=== PATIENT | female | born 1935 | race Caucasian/White ===

== ENCOUNTER 2018-11-19 17:37 | Inpatient (IN) | payer OTHER, MEDICARE ==
[~2018-11-19] VITALS: Ht 157.5 cm; Wt 83.0 kg
--- NOTE | 2018-11-19 17:44 | NUR ---
Arrived via BLS ambulance for eval due to possible infection of left foot stump. Patient to ER bed 3 to gown for evaluation. Side rails up. Report given to Madison GUZMAN.
[2018-11-19 17:46] VITALS: BP_SYST 100
--- NOTE | 2018-11-19 17:55 | NUR ---
ER Dr. Tolliver at bedside examining patient.
--- NOTE | 2018-11-19 17:57 | NUR ---
Patient presented to ER with partial left foot amputation infection. Patient A&Ox1, afebrile, cap refill <3, left 5th toe amputation dressing, pulses present, patient nonverbal, pt moaning, pain possible present. Patient resident of [facility], sent to ER by Dr. Mast for left foot partial amputation infection.
[2018-11-19] MEDS ORDERED: MORPHINE 4 MG/ML INJ. SYRINGE IVP ONE ×2 (18:00→21:30)
[2018-11-19] MEDS ORDERED: ONDANSETRON HCL 4 MG/2 ML VIAL IVP ONE (18:00)
--- NOTE | 2018-11-19 18:10 | NUR ---
# 22 gauge angiocath placed to right arm. Use of asceptic technique. Opsite placed over site. Blood return noted. Blood for lab drawn from site. Flushed with 10 cc of normal saline. No evidence of infiltration noted. Patient tolerated well.
--- NOTE | 2018-11-19 18:30 | NUR ---
radiology staff at bedside for x-ray
[2018-11-19 19:03] LABS: ANION GAP 12 (5-15); CHLORIDE 109 mmol/L (98-107); POTASSIUM 3.9 mmol/L (3.5-5.1); SODIUM SERUM 147 mmol/L (136-145)
[2018-11-19 19:04] LABS: CALCIUM 9.5 mg/dL (8.4-11.0); CREATININE 2.09 mg/dL (0.55-1.30); GLUCOSE 141 mg/dL (70-99); UREA NITROGEN, BLOOD 55 mg/dL (8-21)
--- NOTE | 2018-11-19 19:14 | NUR ---
REPORT TO KELSY GUZMAN
[2018-11-19 19:16] LABS: ALANINE AMINOTRANSFERASE 16 U/L (12-78); ALBUMIN 3.1 g/dL (3.4-4.8); ASPARTATE AMINOTRANSFERASE 18 U/L (10-37); TOTAL BILIRUBIN 0.7 mg/dL (0.0-1.0)
--- NOTE | 2018-11-19 19:21 | NUR ---
MRSA SPECIMEN COLLECTED USING ASEPTIC METHOD, SENT TO LAB
[2018-11-19 19:30] LABS: HEMATOCRIT 35.5 % (36-48); HEMOGLOBIN 11.6 g/dL (12.0-16.0); MEAN CORPUSCULAR HEMOGLOBIN 30 pg (27-31); MEAN CORPUSCULAR HGB CONC 33 % (32-36); MEAN CORPUSCULAR VOLUME 91 fL (79.0-98.0); PLATELET COUNT (AUTO) 275 K/uL (130-430); RED CELL DISTRIBUTION WIDTH 15.6 % (9.0-15.0); WHITE BLOOD COUNT (AUTO) 14.1 K/uL (4.8-10.8)
[2018-11-19] MEDS ORDERED: PIPERACILLIN/TAZO 3.375 GM in NS 50 ML IV ONE (19:30)
[2018-11-19 19:31] LABS: BASOPHILS # (AUTO) 0.1 K/uL (0.0-0.2); BASOPHILS % (AUTO) 0.6 % (0.0-2.0); EOSINOPHILS # (AUTO) 0.6 K/uL (0.0-0.4); EOSINOPHILS % (AUTO) 4.4 % (0.0-4.0); LYMPHOCYTES # (AUTO) 4.6 K/uL (1.0-5.5); LYMPHOCYTES % (AUTO) 32.9 % (20.5-51.5); MONOCYTES % (AUTO) 6.9 % (1.7-9.3); NEUTROPHILS # (AUTO) 7.8 K/uL (1.8-7.7); NEUTROPHILS % (AUTO) 55.2 % (40.0-70.0)
--- NOTE | 2018-11-19 19:34 | NUR ---
Pt started on Broad Spectrum antibiotic, no need for fluid resuscitation at this time. Pt has lactic acid below 4 and no hypotension. aware.
[2018-11-19 19:38] LABS: INR 1.8 (0.8-1.2); PROTHROMBIN TIME 17.8 SECS (9.5-12.5)
[2018-11-19] MEDS ORDERED: LIP20 PO (19:40)
[2018-11-19] MEDS ORDERED: PROT54LI PO (19:40)
[2018-11-19] MEDS ORDERED: ASPI-1155 PO (19:40)
[2018-11-19] MEDS ORDERED: FER300L PO (19:40)
[2018-11-19] MEDS ORDERED: MEMA5TAB PO (19:40)
[2018-11-19] MEDS ORDERED: CIPR-211 PO (19:40)
[2018-11-19] MEDS ORDERED: FURO-150 PO (19:40)
[2018-11-19] MEDS ORDERED: ZINC220T4 PO (19:40)
[2018-11-19] MEDS ORDERED: COU5 PO (19:40)
[2018-11-19] MEDS ORDERED: MULT-1100 PO (19:40)
[2018-11-19] MEDS ORDERED: TRAM50TA2 PO (19:40)
[2018-11-19] MEDS ORDERED: ASCO500T20 PO (19:40)
[2018-11-19] MEDS ORDERED: IPRA3AMP9 INH (19:40)
[2018-11-19] MEDS ORDERED: DOCU-144 PO (19:40)
[2018-11-19] MEDS ORDERED: LOSA100T3 PO (19:40)
[2018-11-19] MEDS ORDERED: CYAN250014 PO (19:40)
[2018-11-19] MEDS ORDERED: WARF4TAB68 PO (19:40)
--- NOTE | 2018-11-19 19:40 | NUR ---
Patient arrived with NO POLST. Patient is Full code at this time. Code Sheet placed in chart
--- NOTE | 2018-11-19 19:40 | NUR ---
Medication reconciliation completed with information provided by [facility] Medication Order. Any prior medication reconciliation on file was reviewed and corrected.
[2018-11-19] MEDS ORDERED: PIPERACILLIN/TAZOBACTAM 3.375 GM/VIAL (ZOSYN) IV ONE (19:48)
--- NOTE | 2018-11-19 21:15 | NUR ---
Pt appears to be moaning and in a lot of pain, pt medicated with morphine per MD order. Tolerated well. Will cont. to monitor on cardiac/O2 monitor.
[2018-11-19] MEDS ORDERED: traMADol HCL HCL 50 MG TABLET (ULTRAM) PO PRN (21:30)
[2018-11-19] MEDS ORDERED: MORPHINE 4 MG/ML INJ. SYRINGE ONE (21:34)
--- NOTE | 2018-11-19 21:37 | NUR ---
Patient will be admitted to care of Dr. Jamison. Admitted to MS unit. Will go to room 107A. Belongings list completed. Summary report printed. Report will be given at bedside.
--- NOTE | 2018-11-19 21:55 | NUR ---
Transferred to M/S Via [facility] with staff present. IV present no signs or symptoms of infiltration. Report called to MEGNA Morris.
[2018-11-19] MEDS ORDERED: VANCOMYCIN HCL 1 GM/NS PREMIX 250 ML IV ONE (22:00)
--- NOTE | 2018-11-19 22:05 | NUR ---
ADMISSION NOTE Received patient from ER via gurney. Patient admitted with diagnosis of Cellulitis. Patient is awake, alert, oriented X 1. Patient oriented to hospital room, call light, toileting, pain management and safety-teach back done. Patient informed that Hilda will be primary nurse and that their room number is 107A. Personal belongings checked and Belongings List documented. Call light within reach.
[2018-11-19 22:08] VITALS: BP_SYST 115
--- NOTE | 2018-11-19 23:01 | NUR ---
ATB PATIENT STARTED ON VANCOMYCIN ANTIBIOTIC ORDERED. IV LINE INTACT.
[2018-11-19] MEDS ORDERED: VANCOMYCIN HCL 1000 MG/VIAL IV ONE (23:03)
--- NOTE | 2018-11-19 23:45 | NUR ---
WOUND CARE WOUND CARE DONE ON PATIENT LEFT FOOT AND LEFT BUTTOCK WOUNDS. PHOTOS OF WOUND TAKEN AND DOCUMENTED.
--- NOTE | 2018-11-20 01:00 | NUR ---
ROUNDS PATIENT RESTING NO DISTRESS NOTED.
[2018-11-20] MEDS ORDERED: PIPERACILLIN/TAZOBACTAM 2.25 GM VIAL IV ONE (01:29)
[2018-11-20 01:37] VITALS: BP_SYST 132
--- NOTE | 2018-11-20 03:33 | NUR ---
ROUNDS NO CHANGE IN CONDITION. PATIENT AWAKE NO DISTRESS NOTED.
[2018-11-20] MEDS: PIPERACILLIN/TAZO 2.25G/DEX-IS 50 ML IV SCH ×2 (05:34→13:04)
--- NOTE | 2018-11-20 05:34 | NUR ---
ATB PATIENT DUE ANTIBIOTIC INFUSED. IV LINE INTACT AND PATENT.
--- NOTE | 2018-11-20 06:24 | NUR ---
CLOSING NOTES PATIENT RESTING IN BED. BREATHING UNLABORED ON ROOM AIR. PATIENT NEEDS ATTENDED. BED IN LOWEST LOCKED POSITION. CALL LIGHT WITH IN REACH.
[2018-11-20 07:20] LABS: BASOPHILS # (AUTO) 0.1 K/uL (0.0-0.2); BASOPHILS % (AUTO) 0.7 % (0.0-2.0); EOSINOPHILS # (AUTO) 0.6 K/uL (0.0-0.4); EOSINOPHILS % (AUTO) 4.8 % (0.0-4.0); HEMATOCRIT 32.3 % (36-48); HEMOGLOBIN 10.6 g/dL (12.0-16.0); LYMPHOCYTES # (AUTO) 3.8 K/uL (1.0-5.5); MEAN CORPUSCULAR HEMOGLOBIN 30 pg (27-31); MEAN CORPUSCULAR HGB CONC 33 % (32-36); MEAN CORPUSCULAR VOLUME 92 fL (79.0-98.0); MONOCYTES # (AUTO) 1.2 K/uL (0.0-1.0); MONOCYTES % (AUTO) 9.9 % (1.7-9.3); NEUTROPHILS # (AUTO) 6.6 K/uL (1.8-7.7); NEUTROPHILS % (AUTO) 53.6 % (40.0-70.0); PLATELET COUNT (AUTO) 233 K/uL (130-430); RED BLOOD CELL COUNT(AUTO) 3.53 MIL/uL (4.2-6.2); RED CELL DISTRIBUTION WIDTH 15.7 % (9.0-15.0); WHITE BLOOD COUNT (AUTO) 12.4 K/uL (4.8-10.8)
--- NOTE | 2018-11-20 07:39 | NUR ---
INITIAL NOTE BEDSIDE SBAR REPORT RECEIVED BY HOUSE CLEANER RN. PT RESTING IN BED. BREATHING EVEN AND UNLABORED. NO ACUTE DISTRESS NOTED. CALL LIGHT WITHIN REACH, BED IN LOW AND LOCKED POSITION WITH BED ALARM ON.
[2018-11-20 07:42] LABS: ALANINE AMINOTRANSFERASE 18 U/L (12-78); ALBUMIN 2.6 g/dL (3.4-4.8); ANION GAP 9 (5-15); ASPARTATE AMINOTRANSFERASE 21 U/L (10-37); CALCIUM 8.6 mg/dL (8.4-11.0); CHLORIDE 112 mmol/L (98-107); GLUCOSE 134 mg/dL (70-99); POTASSIUM 4.6 mmol/L (3.5-5.1); SODIUM SERUM 147 mmol/L (136-145); TOTAL BILIRUBIN 0.9 mg/dL (0.0-1.0); UREA NITROGEN, BLOOD 61 mg/dL (8-21)
[2018-11-20 08:00] VITALS: BP_SYST 116
--- NOTE | 2018-11-20 08:58 | NUR ---
Nutrition Update Jonn Scale 11 noted. Pt admitted for cellulitis. Diet: [facility] BMI: 29.3 kg/m2 RD to follow per nutrition care standards.
[2018-11-20] MEDS: ASPIRIN 81 MG TAB.CHEW PO SCH (09:00)
[2018-11-20] MEDS: MEMANTINE HCL 5 MG TABLET PO SCH (09:00)
[2018-11-20] MEDS: FUROSEMIDE 20 MG TABLET PO SCH (09:00)
[2018-11-20] MEDS: LOSARTAN POTASSIUM 50 MG TABLET (COZAAR) PO SCH (09:00)
--- NOTE | 2018-11-20 09:10 | NUR ---
DR. LOUIS SPOKE WITH MD AT NURSING [facility]. INFORMED MD THAT PATIENT REMAINS NON VERBAL AND REFUSING TO EAT OR TAKE MORNING MEDICATIONS. MD ALSO INFORMED OF NEEDS FOR DVT AND ACCU CHECKS. NO NEW ORDERS AT THIS TIME. Addendum: 11/20/18 at 1405 by Livier Craig RN MD INFORMED OF NO ORAL INTAKE FROM PATIENT, FOOD NOR WATER.
--- NOTE | 2018-11-20 09:30 | NUR ---
RN ROUNDS REPOSITIONED PT WITH HOB ELEVATED. REATTEMPTED TO ENCOURAGE PATIENT TO EAT, PT REMAINS NON VERBAL AND PURSING LIPS WHEN OFFERED FOOD. NO ACUTE DISTRESS NOTED. WILL REATTEMPT TO ENCOURAGE NOURISHMENT.
--- NOTE | 2018-11-20 10:22 | NUR ---
CONSULTATION PAGED/CALLED Reason for Consultation: CELLULITIS Person Who was Notified: JUSTYNA Consulting Physician: Cafeteria Supervisor Specialty: INFECTIOUS DISEASE Ordering Physician:
--- NOTE | 2018-11-20 11:04 | NUR ---
ULTRA SOUND ULTRA SOUND BEING DONE AT BEDSIDE, PT TOLERATING WELL.
--- NOTE | 2018-11-20 11:30 | NUR ---
RN ROUND REPOSITIONED PATIENT FOR COMFORT. PT REMAINS NON-VERBAL. ENCOURAGE PATIENT TO DRINK WATER, PATIENT REFUSING. WILL ATTEMPT LATER.
[2018-11-20 12:47] VITALS: BP_SYST 115
--- NOTE | 2018-11-20 13:30 | NUR ---
RN ROUNDS PT RESTING IN BED, BREATHING EVEN AND UNLABORED, NO ACUTE DISTRESS NOTED.
--- NOTE | 2018-11-20 14:15 | NUR ---
WOUND EVALUATION: Wound Consult received from Dr. Jamison. Thank you, Dr. Jamison, for the consult. Patient received in a [place] Bed with an Isoflex SPENCER mattress, awake, alert, confused. Patient is able to turn in bed with minimal assist. Jonn Score is an 11. Past Medical History: End-Stage Alzheimer's, Hypertension, Chronic Kidney Disease. Recent Labs: WBC 12.4, RBC 3.53, hemoglobin 10.6, hematocrit 32.3, sodium 147, chloride 112, BUNs 61, creatinine 2.0, glucose 134, lactic acid 2.4, albumin 2.6, PT 17.8, INR 1.8. Microbiology: Blood culture results 2 in progress. MRSA screen results in progress. Intrinsic factors that delay wound healing: Chronic Kidney Disease, Hypoalbuminemia. Extrinsic factors that delay wound healing: Decreased mobility. Wound Assessment: 1. 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 Wound bed has 70% yellow slough, 25% black slough, 5% red tissue. No odor, small sanguineous drainage. Periwound intact. Wound measures 5.0 cm x 2.2 cm. 2. Left medial foot at first metatarsal head: Ischemic wound, present on admission. Wound bed has 95% yellow slough, 5% red tissue. No odor, scant sanguineous drainage. Periwound intact. Surrounding tissue has scar tissue. Wound measures 4.2 cm x 2.4 cm. Recommend: Cleanse wounds with normal saline. Apply moisture barrier cream to ignacia-wounds. Apply Venelex ointment to wound beds. Cover with foam dressings. Perform wound care daily, and as needed for dressing soiling or dislodgement. 3. Left Great Toe: Dark discoloration/dry gangrene, with dark discoloration under inferior nail bed, present on admission. No odor, no drainage. 4. Left Second toe, dorsal aspect: Dark discoloration/dry gangrene, present on admission. No odor, no drainage. Recommend: No dressings needed. [place] sites with Betadine q shift. 5. Left Buttock: Pressure ulcer of prior unknown stage, over re-opened scar tissue, present on admission. Wound bed has 100% dark red tissue. No odor, no drainage. Periwound has hypertrophic tissue. Surrounding tissue has scar tissue. Recommend: Cleanse wound with normal saline. Apply moisture barrier cream to ignacia-wound. Apply Venelex ointment to wound beds. Cover with foam dressing. Perform wound care daily, and as needed for dressing soiling or dislodgement. Also recommend: Encourage and assist patient as needed with repositioning side to side only every 2 hours with pillow support and off-load pressure areas with pillows for pressure re-distribution. Offload, elevate and float bilateral heels with pillows. Perform skin care and monitor skin integrity Q shift. Use moisture barrier cream on buttocks and other moisture susceptible areas QID and as needed for soiling. Place patient on a low air-loss mattress.
--- NOTE | 2018-11-20 14:42 | NUR ---
Dietitian Recommendations * Recommend CCHO, pureed diet w/ Glucerna TID, Rj BID (ONS w/ modulars provides 380 kcal/day, 25 gm protein/day) JOHN, DAWNA Please refer to Nutrition Assessment for details. Addendum: 11/20/18 at [address] Amended: Links added.
--- NOTE | 2018-11-20 15:01 | NUR ---
PAGED DR. LOUIS AWAITING RETURN CALL.
--- NOTE | 2018-11-20 15:24 | NUR ---
RN ROUNDS PT RESTING IN BED, NO ACUTE DISTRESS NOTED, BREATHING EVEN AND UNLABORED.
[2018-11-20] MEDS ORDERED: BALSAM PERU/CASTOR OIL 60 GM OINT...G. TP ONE (15:45)
--- NOTE | 2018-11-20 16:39 | NUR ---
MD ROUNDS DR. HWANG AT BEDSIDE EXAMINING PATIENT. NEW ORDERS GIVEN, VERIFIED WITH READ BACK.
[2018-11-20 16:59] VITALS: BP_SYST 137
--- NOTE | 2018-11-20 17:30 | NUR ---
STRAIGHT CATH/WOUND CARE STRAIGHT CATH 1X, URINE OUTPUT 700CC, URINE COLOR YELLOW AND CLOUDY. UA COLLECTED. WOUND CARE DONE. PT TOLERATED WELL. NO ACUTE DISTRESS DURING OR AFTER. REFER TO [facility]ST FOR TREATMENT.
[2018-11-20] MEDS: CEFEPIME 1 GM in D5W 50 ML IV SCH (17:43)
[2018-11-20 18:23] LABS: BILIRUBIN,URINE NEGATIVE (NEGATIVE); CLARITY/URINE HAZY (CLEAR); COLOR,URINE YELLOW (YELLOW); GLUCOSE,URINE NEGATIVE (NEGATIVE); KETONES,URINE NEGATIVE (NEGATIVE); PROTEIN URINE 2+ (NEGATIVE)
[2018-11-20 18:24] LABS: BLOOD, URINE 1+ (NEGATIVE); LEUKOCYTE ESTERASE ,URINE 3+ (NEGATIVE); NITRITE, URINE NEGATIVE (NEGATIVE); UROBILINOGEN,URINE 0.2 (0.2-1.0)
[2018-11-20 18:25] LABS: BACTERIA,URINE MODERATE /HPF (None Seen); WBC,URINE >100 /HPF (0-3)
[2018-11-20 18:26] LABS: MUCUS,URINE 1+ /LPF (None Seen); YEAST,URINE Moderate /HPF (None Seen)
--- NOTE | 2018-11-20 19:19 | NUR ---
CLOSING NOTE BEDSIDE SBAR REPORT GIVEN TO RECEIVING RN. PT DENIES ANY DISCOMFORT. IVF INFUSING WELL. PT EDUCATED ON SAFETY AND USE OF BED ALARM, PT VERBALIZED UNDERSTANDING, REFUSING BED ALARM AT THIS TIME. IVF INFUSING WELL. CALL LIGHT WITHIN REACH BED IN LOW AND LOCKED POSITION. PT CARE ENDORSED TO SYNTHETIC FILAMENT EXTRUDER NURSE. Addendum: 11/20/18 at 1925 by Livier Craig RN DISREGARD WRONG PATIENT ENTRY
--- NOTE | 2018-11-20 19:25 | NUR ---
CLOSING NOTE BEDSIDE SBAR REPORT GIVEN TO RECEIVING RN. PT RESTING, NO ACUTE DISTRESS NOTED. BREATHING EVEN AND UNLABORED. IV SALINE LOCK. CALL LIGHT WITHIN REACH, BED IN LOW AND LOCKED POSITION WITH BED ALARM ON. PT CARE ENDORSED TO JOINT FILLER RN.
--- NOTE | 2018-11-20 19:25 | NUR ---
OPENING NOTES Pt and endorsement received from day shift nurse. Pt is resting in bed with both eyes closed, with visible chest rise and fall with non-labored breathing noted. Pt on saline lock on right forearm G22. Pt is moaning at times. No signs of acute distress or SOB noted. Safety precautions in place with 3 side rails up, wheels locked, bed alarm on and in lowest level. Call light with pt. Will continue to monitor.
[2018-11-20 20:10] VITALS: BP_SYST 117
--- NOTE | 2018-11-20 20:11 | NUR ---
paged paged for Dr Jamison, dialed . s/w Mikhail.
--- NOTE | 2018-11-20 20:33 | NUR ---
SPOKE TO DR. LOUIS Spoke to Dr. Louis regarding pt in pain and is moaning and grimacing. Also told him pt hasn't been eating and Ultram PO med will be difficult to give. Dr. Louis ordered Morphine 2mg IVP Q4 PRN for severe pain. Read back order and will carry out.
[2018-11-20] MEDS: metroNIDAZOLE 500 mg/NS 100 ML IV SCH (20:59)
[2018-11-20] MEDS: MORPHINE 2 MG/ML INJ. SYRINGE IVP PRN (20:59)
[2018-11-20] MEDS: ATORVASTATIN 20 MG TABLET PO SCH (21:07)
--- NOTE | 2018-11-20 21:07 | NUR ---
MED PASS All due med given and pt tolerated well. Aspiration precaution maintained with head elevated at 50 degrees. Pt was moaning and grimacing. FLACC scale of 7/10. Morphine 2mg IVP was given at 2058 hours. No signs acute distress noted. Daughters at bedside. Safety precautions in place and call light with pt. Will continue to monitor.
--- NOTE | 2018-11-20 21:24 | NUR ---
SPOKE TO DR. LOUIS Spoke to Dr. Louis if he wants to order IV fluid since pt hasn't been eating and he said no. Also asked if he can order glucerna for supplement and he said yes. Read back order and will carry out.
[2018-11-20] MEDS ORDERED: FLU VACC TS2019(65UP)/MF59C/PF 45 MCG/0.5 ML SYRINGE I.M. PRN (22:00)
--- NOTE | 2018-11-20 23:50 | NUR ---
ROUNDS Pt is resting in bed with both eyes closed, with visible chest rise and fall with non-labored breathing noted. No signs of pain like moaning or grimacing and no signs of acute distress noted. Safety precautions in place and call light with pt. Will continue to monitor.
[2018-11-21 00:20] VITALS: BP_SYST 103
--- NOTE | 2018-11-21 03:26 | NUR ---
IV INSERTION Pt's IV was infiltrated, new IV inserted by MEGAN Robles on left hand G24. With good blood return and flushable with saline. Pt tolerated well. No moaning and grimacing. No signs of acute distress noted. Safety precautions in place and call light with pt. Will continue to monitor.
--- NOTE | 2018-11-21 04:03 | NUR ---
BLADDER SCAN Bladder scan done and the highest reading it 260ml. Will continue to monitor.
--- NOTE | 2018-11-21 06:30 | NUR ---
BLADDER SCAN Still no urine output. Bladder scan done and the highest reading was 350ml. Leonard hardin MD.
--- NOTE | 2018-11-21 06:45 | NUR ---
ATTENDING MD DR LOUIS WAS PAGED, RE: NO URINE OUTPUT. SPOKE TO BECK.
--- NOTE | 2018-11-21 06:54 | NUR ---
CLOSING NOTES Pt is resting in bed with both eyes closed, with visible chest rise and fall with non-labored breathing noted. No signs of pain like moaning or grimacing at this time. No signs of acute distress or SOB noted. All needs attended throughout the shift. Safety precautions maintained with 3 side rails up, wheels locked, bed alarm on and in lowest level. Call light with pt. Still awaiting call back from MD. Will endorse to day shift nurse. Addendum: 11/21/18 at 0705 by Keila Morgan RN Spoke to Dr. Jamison and told him about pt did not have any urine output the whole night and bladder scan done and it was 350ml. Told him that they did a straight catheter yesterday by day shift and an output of 700ml. Dr. Jamison ordered to insert pink catheter. Read back order and will endorse to day shift nurse.
[2018-11-21 07:50] VITALS: BP_SYST 107
--- NOTE | 2018-11-21 08:00 | NUR ---
RN INITIAL NOTES RECEIVED PATIENT IN BED AWAKE BUT NOT VERBAL AT THIS TIME SHE ACKNOWLEDGED MY PRESENCE BUT MOANS REFUSED TO OPEN MOUTH AND REFUSED FOOD , RESP EVEN AND UNLABORED NO SIGN OF DISTRESS PATIENT STARES BACK NO FACIAL GRIMACE NOTED AT THIS TIME
[2018-11-21] MEDS: metroNIDAZOLE 500 mg/NS 100 ML IV SCH (08:30)
[2018-11-21] MEDS: MEMANTINE HCL 5 MG TABLET PO SCH (08:31)
[2018-11-21] MEDS: ASPIRIN 81 MG TAB.CHEW PO SCH (08:31)
[2018-11-21] MEDS: FUROSEMIDE 20 MG TABLET PO SCH (08:31)
[2018-11-21] MEDS: LOSARTAN POTASSIUM 50 MG TABLET (COZAAR) PO SCH (08:32)
--- NOTE | 2018-11-21 09:00 | NUR ---
DR LOUIS VISIT PPATIENT SEEN BY DR LOUIS AND INFORMED MD PATIENT NOT EATING AND NO IVF ORDERED ONLY HL DR LOUIS SAID HE WILL PUT THE ORDER FOR IVF CONSULT FOR NEPHROLOGY AND SURGEON , GAVE MEDS THRU SYRINGE , PATIENT REFUSED TO EAT , WILL CONT TO MONITOR , WOUND DRESSING DONE, REPOSITIONED AND TURNED TO SIDES
--- NOTE | 2018-11-21 09:57 | NUR ---
Nephrology consult called: for Dr. Gasca, regarding renal failure, ordered by Dr. Jamison, spoke with Marisabel.
--- NOTE | 2018-11-21 10:00 | NUR ---
Surgical consult called: for Sherly Callejas, regarding debridement, ordered by Dr. Jamison, spoke with Jovita.
[2018-11-21] MEDS: BALSAM PERU/CASTOR OIL 60 GM OINT...G. TP SCH (11:18)
--- NOTE | 2018-11-21 12:09 | NUR ---
DR LOUIS PAGED DR JACOME SAID HE WILL COME AND SEE PATIENT TO PUT PATIENT ON NPO PAGED DR LOUIS TO FOLLOW UP WITH IVF
[2018-11-21] MEDS: FLUCONAZOLE 100 mg/ NS 50 ML IV SCH (12:22)
[2018-11-21 12:40] VITALS: BP_SYST 144
--- NOTE | 2018-11-21 13:30 | NUR ---
IV PAGED DR LOUIS TO INFORM PATIENT ON NPO AND NO IVF ORDERED INFORMED CHARGE NURSE
[2018-11-21] MEDS: D5NS 1,000 ML IV SCH (14:26)
--- NOTE | 2018-11-21 14:29 | NUR ---
IVF ORDERED DR LOUIS RETURNED CALL AND ORDERED WITH CHARGE NURSE IVF TOP START RUNNING TO 70 CC/ HR , STARTED AND NO SIDE EFFECT QA THIS TIME FROM FLU SHOT GIVEN
--- NOTE | 2018-11-21 15:24 | NUR ---
DC Planning: unable to LVM for herbert/Aurea # [phone] , her voice mail is full. CM will call her again for DCP assessment.
[2018-11-21 16:35] VITALS: BP_SYST 133
--- NOTE | 2018-11-21 17:00 | NUR ---
NEPHROLOGY PATIENT SEEN BY LABORATORY EQUIPMENT CLEANER ORDERS NOTED
[2018-11-21] MEDS: CEFEPIME 1 GM in D5W 50 ML IV SCH (17:13)
--- NOTE | 2018-11-21 19:05 | NUR ---
ENDORSEMENT WILL ENDORSE TO NEXT SHIFT CONT CARE PATIENT STILL TO BE SEEN BY DR JACOME FOR CONSULT WOUND DRESSING DONE WILL CONT CARE AND MAINTAINED NPO FOR DR JACOME , CONT WITH IVF ORDERED LEO CATH INFUSING NO HEMATURIA NOTED
--- NOTE | 2018-11-21 19:43 | NUR ---
OPENING NOTES Pt and endorsement received from day shift nurse. Pt is awake, eyes open but just looks around, non-verbal and does not follow commands. Pt on IVF with D5NS at 70ml/hr and infusing well on left hand G20. Pt on pink catheter with yellow urine noted in the bag and hanged below bladder level. No moaning or grimacing noted. No signs of acute distress or SOB noted. Safety precautions in place with 3 side rails up, wheels locked, bed alarm on and in lowest level. Call light with pt. Will continue to monitor.
[2018-11-21 20:17] VITALS: BP_SYST 109
[2018-11-21] MEDS: MORPHINE 2 MG/ML INJ. SYRINGE IVP PRN (20:19)
[2018-11-21] MEDS: ATORVASTATIN 20 MG TABLET PO SCH (20:19)
--- NOTE | 2018-11-21 21:07 | NUR ---
MD ROUNDS Pt seen and examined by Dr. Raygoza. He ordered consent for debridement on left foot wounds to be done at bedside. Daughters at bedside and will let them sign consent.
--- NOTE | 2018-11-21 21:20 | NUR ---
BEDSIDE DEBRIDEMENT Dr. Raygoza performed bedside debridement on pt's left foot wounds. Consent was signed by daughter. Dressing was done by Dr. Raygoza and pt tolerated well. Will continue to monitor.
[2018-11-21] MEDS ORDERED: LIDOCAINE 1%, 20 ML MDV 0 ML ONE (21:26)
[2018-11-21] MEDS ORDERED: MORPHINE 2 MG/ML INJ. SYRINGE IVP ONE (21:30)
[2018-11-21 21:36] VITALS: BP_SYST 111
--- NOTE | 2018-11-21 21:38 | NUR ---
PAIN MED Dr. Raygoza ordered Morphine 2mg IVP one time to be given now. Pt was moaning constantly after post surgical procedure at bedside. Vital signs taken and recorded. Pain med given and educated on side effects like dizziness. No signs of acute distress noted. Daughters at bedside. Will continue to monitor.
[2018-11-21] MEDS: VANCOMYCIN HCL 750 MG in NS 250 ML IV SCH (22:06)
--- NOTE | 2018-11-22 00:05 | NUR ---
ROUNDS Pt is resting in bed with both eyes closed, with visible chest rise and fall with non-labored breathing noted. No signs of pain like moaning or grimacing and no signs of acute distress noted. IVF infusing well. Safety precautions in place and call light with pt. Will continue to monitor.
[2018-11-22 00:42] VITALS: BP_SYST 129
--- NOTE | 2018-11-22 03:33 | NUR ---
ROUNDS Pt is resting in bed with both eyes closed, with visible chest rise and fall with non-labored breathing noted. IVF infusing well. No moaning and no signs of acute distress noted. No needs at this time. Safety precautions in place and call light with pt. Will continue to monitor.
[2018-11-22] MEDS: D5NS 1,000 ML IV SCH ×2 (05:04→16:10)
--- NOTE | 2018-11-22 06:25 | NUR ---
CLOSING NOTES Pt is resting in bed with both eyes closed, with visible chest rise and fall with non-labored breathing noted. IVF patent and infusing well. Kept pink bag hanged below bladder level. No signs of pain like moaning or grimacing at this time. No signs of acute distress or SOB noted. All needs attended throughout the shift. Safety precautions maintained with 3 side rails up, wheels locked, bed alarm on and in lowest level. Call light with pt. Will endorse to day shift nurse.
[2018-11-22 08:00] VITALS: BP_SYST 138
--- NOTE | 2018-11-22 08:00 | NUR ---
Note Pt drowsy and no SOB/resp distress or pain/discomfort was noted at this time. IV in left hand intact and patent at this time infusing IVF's well. No needs noted at this time. Call light within reach.
[2018-11-22] MEDS: LOSARTAN POTASSIUM 50 MG TABLET (COZAAR) PO SCH (08:53)
[2018-11-22] MEDS: ASPIRIN 81 MG TAB.CHEW PO SCH (08:53)
[2018-11-22] MEDS: FUROSEMIDE 20 MG TABLET PO SCH (08:54)
[2018-11-22] MEDS: MEMANTINE HCL 5 MG TABLET PO SCH (08:54)
[2018-11-22] MEDS: BALSAM PERU/CASTOR OIL 60 GM OINT...G. TP SCH (08:55)
[2018-11-22] MEDS: MORPHINE 2 MG/ML INJ. SYRINGE IVP PRN ×2 (09:07→22:45)
--- NOTE | 2018-11-22 09:10 | NUR ---
Note Pt was given Morphine 2mg IVP for pain. Pt turned q2' for comfort and promotion of circulation. Call light within reach.
[2018-11-22] MEDS: FLUCONAZOLE 100 mg/ NS 50 ML IV SCH (11:39)
--- NOTE | 2018-11-22 12:00 | NUR ---
Note Pt asleep at this time. Pt's grandson was at bedside 1000am to 1140am. Spoke to pt's daughter on the phone and diet was reordered (asia TATUM). Dr Jamison and Dr Raygoza were called. Pt will receive Glucerna with lunch tray. No needs noted at this time. Pt was given hygiene care by ONLINE COMMUNICATIONS MANAGER and lower extremities elevated all shift on pillows. Call light within reach.
[2018-11-22 12:15] VITALS: BP_SYST 144
--- NOTE | 2018-11-22 14:04 | NUR ---
Dc Planning: notified dr. Martinez that the pt does not meet criteria for LTAC admission per Mariana. The pt changed status to tele today. aware to send LTAC eval on Sunday instead. The pt is sp ID on left foot ulcer yesterday and no amputation necessary per dr. Raygoza. Other dx: osteomylitis, BC is positive, UTI positive waiting for cultures.
--- NOTE | 2018-11-22 14:55 | NUR ---
Note Pt refused lunch, pt did drink her Glucerna. Pt has been asleep the last 1-2 hours. No pain/discomfort noted at this time. Call light within reach.
--- NOTE | 2018-11-22 15:25 | NUR ---
Note Pt has tele unit attached and intact at this time.
--- NOTE | 2018-11-22 15:35 | NUR ---
Note Called family at phone number given, no answer.
[2018-11-22] MEDS: CEFEPIME 1 GM in D5W 50 ML IV SCH (16:09)
[2018-11-22 16:20] VITALS: BP_SYST 143
--- NOTE | 2018-11-22 16:26 | NUR ---
Nutrition F/U Admitting Diagnosis Cellulitis, Osteomylitis PMH: End-stage Alzheimer's, DM, foot amputations, HTN, CKD per physician notes. Subjective Information Pt was seen resting in bed with grandson at bedside. RN reported pt was refusing food but was drinking the Glucerna. Pt had been NPO x1 day. RN stated diet will resume for lunch and requested the Glucerna. Pt average PO intake of 10% x 1 meal and 3 meal refusals. Bed scale weight read 172.7 lb - may be inaccurate d/t linens. Pt has a pending debridement surgical consult. Per process laboratory specialist note 11/20: 1. 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 Wound bed has 70% yellow slough, 25% black slough, 5% red tissue. No odor, small sanguineous drainage. Periwound intact. Wound measures 5.0 cm x 2.2 cm.2. Left medial foot at first metatarsal head: Ischemic wound, present on admission. Wound bed has 95% yellow slough, 5% red tissue. No odor, scant sanguineous drainage. Periwound intact. Surrounding tissue has scar tissue. Wound measures 4.2 cm x 2.4 cm. 3. Left Great Toe: Dark discoloration/dry gangrene, with dark discoloration under inferior nail bed, present on admission. No odor, no drainage. 4. Left Second toe, dorsal aspect: Dark discoloration/dry gangrene, present on admission. No odor, no drainage. 5. Left Buttock: Pressure ulcer of prior unknown stage, over re-opened scar tissue, present on admission. Wound bed has 100% dark red tissue. No odor, no drainage. Periwound has hypertrophic tissue. Surrounding tissue has scar tissue. DI encouraged PO intake to grandson. Pt not yet meeting nutritional needs. Current Diet Order/Nutrition Support CCHO, pureed diet w/ Glucerna TID, Rj BID x 0 days Pertinent Labs (no new labs) 11/20/18: Na 147 H, BG 134 H, BUN 61 H, CRE 2.8 H, WBC 12.4 H, Lactic acid 2.4 H POC BG 143 H (new lab drawn) Estimated Energy Expenditure (kcals/day) 2503-2508 kcal/day (30-35 kcal/kg Adj IBW wound healing) NEW Estimated Protein Required (g/day) 45-66 gm/day (0.8-1.2 gm/kg Adj IBW for RF/ geriatric maintenance) NEW Estimated Fluid Required (l/day) Defer to MD r/t RF Problem/Etiology/Signs/Symptoms Suboptimal PO intakes related to possible lack of appetite associated w/ cognitive limitations as evidenced by Hx of Alzheimer's, negligible PO intake records and RN report of pt's refusals of meals. (*ongoing) Expected Outcomes/Goals - Monitor appetite and PO intakes w/ goal of pt meeting at least 50% of estimated nutritional needs, labs trending WNL, normal GI function, and skin integrity/wt maintenance. Dietitian Recommendations * Recommend continuing CCHO, pureed diet w/ Glucerna TID, Rj BID (ONS w/ modulars provides 820 kcal/day, 35 gm protein/day) Follow Up High Risk: F/U in 2-3 days Signed: 11/22/18 at 1627 by Aurea TONY <Co-Signature Required> Co-Signed: 11/22/18 at [address]
--- NOTE | 2018-11-22 16:28 | NUR ---
Dietitian Recommendations * Recommend continuing CCHO, pureed diet w/ Glucerna TID, Rj BID (ONS w/ modulars provides 820 kcal/day, 35 gm protein/day) DAWNA LOPEZ Please refer to Nutrition F/U for details. Signed: 11/22/18 at 1629 by Aurea TONY <Co-Signature Required> Co-Signed: 11/22/18 at [address]
--- NOTE | 2018-11-22 18:20 | NUR ---
Note Pt resting in bed, refuses dinner but will take sips of Glucerna. No SOB/resp distress or severe pain/discomfort noted at this time. Pt was checked on q1' and PRN all shift for needs and care. IV in left hand intact and patent infusing IVF's well. Pt resting without discomfort at this time. Call light within reach.
--- NOTE | 2018-11-22 18:38 | NUR ---
Paged Dr. Rodrigues s/w Karl.
--- NOTE | 2018-11-22 19:30 | NUR ---
Opening notes Received report. Patient is resting in bed. No signs of distress noted. Breathing even and unlabored. IV patent and intact, infusing fluids. Left foot dressing clean, dry and intact. Daughter is at bedside and was able to feed patient glucerna. No other needs. Call light with the patient. Safety precautions in place.
[2018-11-22 20:00] VITALS: BP_SYST 132
[2018-11-22] MEDS: ATORVASTATIN 20 MG TABLET PO SCH (21:11)
--- NOTE | 2018-11-22 21:15 | NUR ---
Notes Medications given with apple juice through a syringe. Patient tolerated well. No signs of allergic reaction noted. Updated patient's family on plan of care. Patient's daughter refusing to have patient sent to [facility]. States they do not like the facility and would prefer if patient can go back to [facility]. Daughter states she will come back in the morning to speak with doctor and case mgr. No other needs at this time. Call light with the patient. Safety precautions in place.
--- NOTE | 2018-11-22 22:51 | NUR ---
Pain med Patient family requesting for patient to have pain medication. Patient moaning and frowning. PRN pain medication given. Eduated the action and side effects. Patient tolerated well. No signs of allergic reaction noted. Family turned patient. Patient tolerated well. No other needs. Call light with the patient. Safety precautions in place.
--- NOTE | 2018-11-23 00:30 | NUR ---
Sleeping No signs of distress noted. Breathing even and unlabored. IVF infusing well. No facial grimacing or moaning noted. Call light with the patient. Safety precautions in place.
[2018-11-23 00:31] VITALS: BP_SYST 121
--- NOTE | 2018-11-23 02:30 | NUR ---
Sleeping No signs of distress noted. Breathing even and unlabored. IVF infusing well. No signs of pain noted. Call light with the patient. Safety precautions in place.
--- NOTE | 2018-11-23 04:55 | NUR ---
Hygiene care done. Patient tolerated well. No signs of distress noted. Breathing even and unlabored. IVF infusing well. Call light with the patient. Safety precautions in place.
[2018-11-23 06:11] LABS: BASOPHILS # (AUTO) 0.1 K/uL (0.0-0.2); BASOPHILS % (AUTO) 0.5 % (0.0-2.0); EOSINOPHILS # (AUTO) 0.6 K/uL (0.0-0.4); EOSINOPHILS % (AUTO) 6.1 % (0.0-4.0); HEMATOCRIT 29.2 % (36-48); HEMOGLOBIN 9.7 g/dL (12.0-16.0); LYMPHOCYTES # (AUTO) 2.4 K/uL (1.0-5.5); LYMPHOCYTES % (AUTO) 24.7 % (20.5-51.5); MEAN CORPUSCULAR HEMOGLOBIN 30 pg (27-31); MEAN CORPUSCULAR HGB CONC 33 % (32-36); MEAN CORPUSCULAR VOLUME 91 fL (79.0-98.0); MONOCYTES # (AUTO) 0.9 K/uL (0.0-1.0); MONOCYTES % (AUTO) 9.1 % (1.7-9.3); NEUTROPHILS # (AUTO) 5.8 K/uL (1.8-7.7); NEUTROPHILS % (AUTO) 59.6 % (40.0-70.0); PLATELET COUNT (AUTO) 183 K/uL (130-430); RED CELL DISTRIBUTION WIDTH 14.9 % (9.0-15.0); WHITE BLOOD COUNT (AUTO) 9.6 K/uL (4.8-10.8)
[2018-11-23 06:30] LABS: ALANINE AMINOTRANSFERASE 16 U/L (12-78); ALBUMIN 2.2 g/dL (3.4-4.8); ANION GAP 6 (5-15); ASPARTATE AMINOTRANSFERASE 24 U/L (10-37); CALCIUM 8.3 mg/dL (8.4-11.0); CREATININE 1.71 mg/dL (0.55-1.30); GLUCOSE 162 mg/dL (70-99); SODIUM SERUM 153 mmol/L (136-145); TOTAL BILIRUBIN 0.4 mg/dL (0.0-1.0); UREA NITROGEN, BLOOD 41 mg/dL (8-21)
--- NOTE | 2018-11-23 06:31 | NUR ---
Closing notes Patient resting in bed. No signs of distress or pain noted. Breathing even and unlabored. IV patent and intact, infusing fluids. Elkins catheter in place draining yellow urine. Patient turned and repositioned as needed. All needs met throughout the shift. Call light with the patient. Safety precautions in place. Will endorse care to day shift RN.
[2018-11-23 06:36] LABS: CHLORIDE 122 mmol/L (98-107)
[2018-11-23] MEDS: D5W 1,000 ML IV SCH ×3 (06:51→21:28)
[2018-11-23 08:00] VITALS: BP_SYST 137; BP_SYST 153
--- NOTE | 2018-11-23 08:00 | NUR ---
ASSUMPTION OF CARE: RECEIVED PT AWAKE, NON-VERBAL, DX:CELLULITIS, VSS, NO S/S OF DISTRESS, BREATH SOUNDS ARE CLEAR, BREATHING UNLABORED, AFEBRILE, IV SITE INTACT, PATENT, NO REDNESS OR SWELLING, LEFT FOOT KEPT ELEVATED ON PILLOW, DRSG CLEAN, DRY AND INTACT, NO DRAINAGE NOTED, WARM, DRY TO TOUCH, ORIENTED TO CALL LIGHT, PLACED WITHIN REACH, WILL CONT' TO MONITOR AND ASSESS.
[2018-11-23] MEDS: ASPIRIN 81 MG TAB.CHEW PO SCH (09:22)
[2018-11-23] MEDS: MEMANTINE HCL 5 MG TABLET PO SCH (09:22)
[2018-11-23] MEDS: LOSARTAN POTASSIUM 50 MG TABLET (COZAAR) PO SCH (09:23)
[2018-11-23] MEDS: FUROSEMIDE 20 MG TABLET PO SCH (09:24)
[2018-11-23] MEDS: BALSAM PERU/CASTOR OIL 60 GM OINT...G. TP SCH (09:30)
--- NOTE | 2018-11-23 09:30 | NUR ---
SENIOR QUALITY ENGINEER: MORNING MEDS GIVEN, PER ORDERED BY Litzy, TOLERATED WELL, DAUGHTER AT BEDSIDE TO ASSIST WITH FEEDING, PT IS AWAKE, ALERT, TOLERATING FEEDING, ORIENTED TO UNIT, CALL LIGHT WITHIN REACH, WILL CONT' TO MONITOR AND ASSESS.
[2018-11-23] MEDS: MORPHINE 2 MG/ML INJ. SYRINGE IVP PRN ×2 (09:34→18:50)
--- NOTE | 2018-11-23 09:35 | NUR ---
PAIN: PT OBSERVED WHILE MOANING, INDICATING PAIN TO LEFT FOOT, DAUGHTER AT BEDSIDE AND CONFIRMS THAT PT IS IN PAIN, MEDS GIVEN AT THIS TIME, TOLERATED WELL, WILL CONT' TO MONITOR AND ASSESS.
--- NOTE | 2018-11-23 13:00 | NUR ---
VISIT: AT BEDSIDE FOR ASSESSMENT OF PT, NEW ORDERS GIVEN, WILL CONT' WITH POC.
[2018-11-23] MEDS: FLUCONAZOLE 100 mg/ NS 50 ML IV SCH (13:11)
[2018-11-23] MEDS ORDERED: CYANOCOBALAMIN 1000 mCg TABLET PO ONE (13:15)
[2018-11-23] MEDS ORDERED: NEPHROVITE, (FOLIC ACID/VITAMIN B COMP W-C 1 TAB) PO ONE (13:15)
[2018-11-23 13:38] LABS: TOTAL IRON BIND. CAPACITY 127 ug/dL (250-450)
[2018-11-23 15:25] VITALS: BP_SYST 130
--- NOTE | 2018-11-23 17:00 | NUR ---
NURSES NOTES: PT REMAINS STABLE, REPOSITIONED FOR COMFORT, TOLERATED WELL, IS MOANING AT THIS TIME, WILL MEDICATE FOR PAIN, CONT' TO MONITOR AND ASSESS.
[2018-11-23] MEDS: CEFEPIME 1 GM in D5W 50 ML IV SCH (17:30)
--- NOTE | 2018-11-23 19:20 | NUR ---
OPENING NOTES Receive report from AM nurse. Patient appears to be sleeping. Responds to name. No respiratory distress noted. Breathing even and unlabored. Elkins attached and secured, draining by gravity. Dressing in the left lower leg, clean dry and intact, no active bleeding and drainage noted. Feet elevated with pillows. HOB raised. IVF infusing well, patency noted. No signs of infiltration. Bed locked and lowest position. Bed alarm on. Call light with in reach.
[2018-11-23] MEDS: ATORVASTATIN 20 MG TABLET PO SCH (21:27)
--- NOTE | 2018-11-23 21:27 | NUR ---
MED PASS/NEW IV BAG Due medication given. Patient tolerated well. New IV bag hang at this time, infusing well. All needs met. Safety precautions in place.
[2018-11-23] MEDS: VANCOMYCIN HCL 750 MG in NS 250 ML IV SCH (22:27)
--- NOTE | 2018-11-23 23:30 | NUR ---
RN ROUNDS Patient is asleep. No signs of discomfort noted at this time. No signs of acute respiratory distress, breathing even and unlabored. Safety precautions in place. Will continue to monitor.
[2018-11-24 00:12] VITALS: BP_SYST 147
--- NOTE | 2018-11-24 01:30 | NUR ---
RN ROUNDS Patient is asleep. No signs of discomfort noted at this time. No signs of acute respiratory distress, breathing even and unlabored. HOB raised. Safety precautions in place. Will continue to monitor.
--- NOTE | 2018-11-24 03:15 | NUR ---
WOUND CARE Wound care done at this time, followed wound care orders. Patient tolerated well. No signs of acute respiratory distress noted. Dressing in the left lower extremities appears clean and dry. Needs met and attended. Bed locked and lowest position. Safety precaution in place. Will continue to monitor.
[2018-11-24] MEDS: D5W 1,000 ML IV SCH ×3 (03:18→21:00)
--- NOTE | 2018-11-24 06:44 | NUR ---
CLOSING NOTES Patient is awake. Respond to name. No signs of respiratory distress. IVF infusing well, patency noted. Elkins attached, secured and draining by gravity. Dressing on the left foot intact, clean and dry, no drainage, no active bleeding noted. Sacral dressing intact, clean and dry. All needs met throughout the shift. Fall and safety precaution in place. Will continue to monitor until patient care is endorse to oncoming day shift nurse.
[2018-11-24 07:14] LABS: BASOPHILS # (AUTO) 0.1 K/uL (0.0-0.2); BASOPHILS % (AUTO) 0.7 % (0.0-2.0); EOSINOPHILS # (AUTO) 0.8 K/uL (0.0-0.4); EOSINOPHILS % (AUTO) 6.7 % (0.0-4.0); HEMATOCRIT 29.2 % (36-48); HEMOGLOBIN 9.7 g/dL (12.0-16.0); LYMPHOCYTES # (AUTO) 2.9 K/uL (1.0-5.5); LYMPHOCYTES % (AUTO) 23.4 % (20.5-51.5); MEAN CORPUSCULAR HEMOGLOBIN 30 pg (27-31); MEAN CORPUSCULAR HGB CONC 33 % (32-36); MEAN CORPUSCULAR VOLUME 91 fL (79.0-98.0); MONOCYTES % (AUTO) 7.8 % (1.7-9.3); NEUTROPHILS # (AUTO) 7.5 K/uL (1.8-7.7); NEUTROPHILS % (AUTO) 61.4 % (40.0-70.0); PLATELET COUNT (AUTO) 192 K/uL (130-430)
[2018-11-24 07:27] LABS: ANION GAP 9 (5-15); CALCIUM 8.4 mg/dL (8.4-11.0); CHLORIDE 113 mmol/L (98-107); CREATININE 1.55 mg/dL (0.55-1.30); FREE T4 (FREE THYROXINE) 0.9 ng/dl (0.8-1.5); GLUCOSE 148 mg/dL (70-99); POTASSIUM 3.7 mmol/L (3.5-5.1); SODIUM SERUM 147 mmol/L (136-145); THYROID STIMULATING HORMONE 2.48 uIu/mL (0.36-3.74); UREA NITROGEN, BLOOD 49 mg/dL (8-21)
[2018-11-24 07:57] LABS: WHITE BLOOD COUNT (AUTO) 12.3 K/uL (4.8-10.8)
[2018-11-24 08:00] VITALS: BP_SYST 139
--- NOTE | 2018-11-24 08:00 | NUR ---
RN OPENING NOTE patient is resting in bed. open eyes but non verbal. patient was assessed, vital signs are stable.. IVF is running as prescribed, will continue to monitor and will pass the med , bed at low position and call light within reach bed alarm is on
--- NOTE | 2018-11-24 10:00 | NUR ---
RN NOTE PATIENT GOT HER MEDICATION, DAUGHTER BY THE BEDSIDE,
[2018-11-24] MEDS: ASPIRIN 81 MG TAB.CHEW PO SCH (10:02)
[2018-11-24] MEDS: LOSARTAN POTASSIUM 50 MG TABLET (COZAAR) PO SCH (10:03)
[2018-11-24] MEDS: MEMANTINE HCL 5 MG TABLET PO SCH (10:03)
[2018-11-24] MEDS: NEPHROVITE, (FOLIC ACID/VITAMIN B COMP W-C 1 TAB) PO SCH (10:04)
[2018-11-24] MEDS: FUROSEMIDE 20 MG TABLET PO SCH (10:04)
[2018-11-24] MEDS: CYANOCOBALAMIN 1000 mCg TABLET PO SCH (10:05)
[2018-11-24] MEDS: BALSAM PERU/CASTOR OIL 60 GM OINT...G. TP SCH (10:05)
[2018-11-24] MEDS: ENOXAPARIN SODIUM 30 MG/0.3 ML SYRINGE SUBCUT SCH (10:15)
[2018-11-24] MEDS: MORPHINE 2 MG/ML INJ. SYRINGE IVP PRN (10:21)
[2018-11-24 12:00] VITALS: BP_SYST 168
--- NOTE | 2018-11-24 12:00 | NUR ---
RN NOTE PATIENT WAS REPOSITIONED. PATIENT'S FAMILY BY THE BED SIDE, WERE EDUCATED ABOUT THE DISEASE PROCESS OF THE PATIENT. FALL PREVENTION. THEY VERBALIZED UNDERSTANDING
[2018-11-24] MEDS: FLUCONAZOLE 100 mg/ NS 50 ML IV SCH (12:40)
--- NOTE | 2018-11-24 14:00 | NUR ---
RN NOTE PATIENT WAS REPOSITIONED. FAMILY MEMBERS STILL BY BED SIDE
--- NOTE | 2018-11-24 16:00 | NUR ---
RN NOTE PATENT WAS REPOSITIONED. FAMILY MEMBERS ABOUT TO LEAVE, WILL CONTINUE TO MONITOR.
[2018-11-24 16:53] VITALS: BP_SYST 149
[2018-11-24] MEDS: CEFEPIME 1 GM in D5W 50 ML IV SCH (17:20)
[2018-11-24] MEDS: ACETAMINOPHEN/CODEINE 300 MG-30 MG TABLET PO SCH ×2 (17:21→21:42)
--- NOTE | 2018-11-24 18:00 | NUR ---
RN CLOSING NOTE PATIENT IS RESTING IN BED, PATIENT WAS GIVEN HER IVPB OF ANTIBIOTICS. AND GIVEN HER P.O PAIN MED. PATIENT WAS REPOSITIONED WILL CONTINUE TO MONITOR.
--- NOTE | 2018-11-24 19:30 | NUR ---
OPENING NOTES Receive report from AM nurse. Patient asleep, family at the bed side. No signs of respiratory distress. Breathing even and unlabored. No signs of discomfort at this time. IVF infusing well, patency noted. Elkins attached and secured, draining by gravity. Dressing in the left foot dry, clean and intact. Call light within reach. Bed locked and lowest position. Bed alarm on. Will continue to monitor.
[2018-11-24 20:00] VITALS: BP_SYST 125
--- NOTE | 2018-11-24 21:40 | NUR ---
MED PASS/SWALLOW EVAL REQUEST Schedule medication administer. Patient tolerated well. Patient's daughter at bed side stated patient was pocketing Ensure, requesting swallow eval at this time. Will inform MD.
[2018-11-24] MEDS: MIRTAZAPINE 15 MG TABLET PO SCH (21:41)
[2018-11-24] MEDS: ATORVASTATIN 20 MG TABLET PO SCH (21:41)
--- NOTE | 2018-11-24 22:55 | NUR ---
PAGED I PAGED DR. ROMAN HE ENTERED NOTES ON THIS PT TODAY I SPOKE WITH NAILA ROMAN CALLED BACK @ 2003
--- NOTE | 2018-11-24 22:57 | NUR ---
SPOKE TO DR. ROMAN RE SWALLOW EVAL Dr. Roman made aware of the patient's family request for swallow eval. Order given, will carry out.
--- NOTE | 2018-11-25 | NUR ---
RN ROUNDS Patient is asleep at this time. No signs of respiratory distress. NO signs of discomfort. HOB raised. Breathing even and unlabored. Safety precaution in place. IVF infusing well. Will continue to monitor.
[2018-11-25 00:20] VITALS: BP_SYST 139
--- NOTE | 2018-11-25 02:10 | NUR ---
RN ROUNDS Patient is asleep, no signs of respiratory distress. Breathing even and unlabored. HOB raised. No signs of discomfort at this time. IVF infusing well. Safety precaution in place. Will continue to monitor.
[2018-11-25] MEDS: D5W 1,000 ML IV SCH ×4 (04:05→23:47)
--- NOTE | 2018-11-25 04:26 | NUR ---
WOUND CARE/HANG IV FLUIDS Wound care done at this time, followed wound care orders. Patient tolerated well. No signs of acute respiratory distress noted. Dressing in the left lower extremities appears clean and dry. IVF given per MD order, infusing well. Patency noted. Needs met and attended. Bed locked and lowest position. Safety precaution in place. Will continue to monitor.
--- NOTE | 2018-11-25 04:35 | NUR ---
TOMASZ PALMA: PROFESSIONAL SPEECH SERVICE WAS CALLED I LEFT A MESSAGE ON [employer] MACHINE PHONE NUMBER I CALLED WAS [phone]
--- NOTE | 2018-11-25 06:51 | NUR ---
CLOSING NOTES Patient is asleep at this time. No signs of respiratory distress and discomfort noted at this time. IVF infusing well. Elkins attached, secured and draining well by gravity. Dressing in the left foot intact, clean and dry. HOB raised. All needs met throughout the shift. Fall and safety precaution maintained throughout the shift. Will continue to monitor until patient care is endorse to oncoming AM nurse.
[2018-11-25 07:04] LABS: BASOPHILS % (AUTO) 0.4 % (0.0-2.0); EOSINOPHILS # (AUTO) 0.9 K/uL (0.0-0.4); EOSINOPHILS % (AUTO) 8.3 % (0.0-4.0); HEMOGLOBIN 10.9 g/dL (12.0-16.0); LYMPHOCYTES # (AUTO) 3.4 K/uL (1.0-5.5); LYMPHOCYTES % (AUTO) 30.1 % (20.5-51.5); MEAN CORPUSCULAR HEMOGLOBIN 30 pg (27-31); MEAN CORPUSCULAR HGB CONC 33 % (32-36); MEAN CORPUSCULAR VOLUME 91 fL (79.0-98.0); MONOCYTES # (AUTO) 0.9 K/uL (0.0-1.0); MONOCYTES % (AUTO) 8.2 % (1.7-9.3); NEUTROPHILS # (AUTO) 5.9 K/uL (1.8-7.7); PLATELET COUNT (AUTO) 173 K/uL (130-430); RED BLOOD CELL COUNT(AUTO) 3.62 MIL/uL (4.2-6.2); RED CELL DISTRIBUTION WIDTH 15.1 % (9.0-15.0); WHITE BLOOD COUNT (AUTO) 11.1 K/uL (4.8-10.8)
[2018-11-25 07:34] LABS: ANION GAP 7 (5-15); CHLORIDE 106 mmol/L (98-107); CREATININE 1.59 mg/dL (0.55-1.30); GLUCOSE 156 mg/dL (70-99); POTASSIUM 4.1 mmol/L (3.5-5.1); SODIUM SERUM 139 mmol/L (136-145); UREA NITROGEN, BLOOD 54 mg/dL (8-21)
[2018-11-25] MEDS: ASPIRIN 81 MG TAB.CHEW PO SCH (07:54)
[2018-11-25] MEDS: LOSARTAN POTASSIUM 50 MG TABLET (COZAAR) PO SCH (07:56)
[2018-11-25] MEDS: MEMANTINE HCL 5 MG TABLET PO SCH (07:58)
[2018-11-25] MEDS: FUROSEMIDE 20 MG TABLET PO SCH (07:58)
[2018-11-25] MEDS: ACETAMINOPHEN/CODEINE 300 MG-30 MG TABLET PO SCH ×4 (07:58→21:42)
[2018-11-25] MEDS: NEPHROVITE, (FOLIC ACID/VITAMIN B COMP W-C 1 TAB) PO SCH (07:58)
[2018-11-25] MEDS: CYANOCOBALAMIN 1000 mCg TABLET PO SCH (07:59)
[2018-11-25 08:06] LABS: CALCIUM 8.7 mg/dL (8.4-11.0)
[2018-11-25 08:32] VITALS: BP_SYST 150
--- NOTE | 2018-11-25 08:52 | NUR ---
11/25/2018 0852 This patient is lying quietly in bed. Vital signs: 150/70 HR 81, resp 18, 98%RA temperature was 99.8 taken axillary. BS obtained with a results of 133. She is very quiet and does not verbally respond to requests, eyes open, unable to follow simply commands. The dressing at her left leg is clean dry and intact. PO oral medications will be held pending swallow evaluation which was ordered last night in order to prevent aspiration. Vital signs will be monitored until. IV bp med will be requested if bp remains elevated prior to the testing. Labs reviewed. BUN 54, creatinine 1.59, wbc 11.1.
--- NOTE | 2018-11-25 09:26 | NUR ---
S.T. SWALLOW EVAL SWALLOW EVAL COMPLETED. PT PRESENTS W/ SEV PRE-ORAL, ORAL, AND PHARYNGEAL DYSPHAGIA W/ ORAL DEFENSIVENESS, POOR BOLUS TRANSITION MANAGER, ABSENT BOLUS MANIPULATION, AND ABSENT SWALLOW. PT IS AT RISK FOR ASPIRATION, MALNUTRITION, AND DEHYDRATION. REC: 1) CONSIDER IV FOR MEDS. 2) RE-EVAL IF/WHEN P.O. INTEREST IMPROVES. 3) MAY NEED TO CONSIDER DIECAST MACHINE OPERATOR FEEDING OPTIONS (GT VS HOSPICE). SPOKE W/ DR. LOUIS. NURSE PRICE NOTIFIED. [id number] CM G8997 CM G8998 CM NOMS LEVEL 2
[2018-11-25] MEDS: BALSAM PERU/CASTOR OIL 60 GM OINT...G. TP SCH (09:58)
[2018-11-25] MEDS: ENOXAPARIN SODIUM 30 MG/0.3 ML SYRINGE SUBCUT SCH (10:00)
[2018-11-25] MEDS: FLUCONAZOLE 100 mg/ NS 50 ML IV SCH (10:50)
--- NOTE | 2018-11-25 11:17 | NUR ---
11/25/2018 1117 This patient did not perform well during the swallow evaluation. Dr. Jamison is made aware that the patient may need IV medication for bp in order to prevent aspiration. This patient remains quiet, no verbal response noted, opens eyes with no tracking. CARDIAC SURGEON reports that the patient did not eat any of her breakfast. IV antibiotics infusing at this time.
[2018-11-25 11:29] VITALS: BP_SYST 156
--- NOTE | 2018-11-25 14:15 | NUR ---
Nutrition F/U RD reviewed pt's current EMR including diet Hx, physician notes, nursing notes, pertinent labs/meds/procedures, care trends and care activity. Current Diet Order: Pureed CCHO diet w/ Glucerna TID, Rj BID x 3 days Subjective information: Pt seen in bed, no family at bedside able to answer RD questioins. Breakfast tray at bedside, untouched, ONS not consumed yet earlier at time of visit. Rj w/ breakfast tray, not yet administered. SWALLOW EVAL COMPLETED. PT PRESENTS W/ SEV PRE-ORAL, ORAL, AND PHARYNGEAL DYSPHAGIA W/ ORAL DEFENSIVENESS, POOR BOLUS DRAIN TILE PRESS OPERATOR, ABSENT BOLUS MANIPULATION, AND ABSENT SWALLOW. PT IS AT RISK FOR ASPIRATION, MALNUTRITION, AND DEHYDRATION. REC: 1) CONSIDER IV FOR MEDS. 2) RE-EVAL IF/WHEN P.O. INTEREST IMPROVES. 3) MAY NEED TO CONSIDER [facility] FEEDING OPTIONS (GT VS HOSPICE). Per EMR, PO intake remains negligible (8% to 17% x 2 days). RD noted administrative services specialist note and agree w/ GT feeding for truck terminal manager nutrition support to be able to meet estimated needs. Current PO intake: Negligible 17% average of 3 meals 11/24/18 Estimated Energy Expenditure (kcals/day) 7261-6019 kcal/day (30-35 kcal/kg Adj IBW wound healing) NEW Estimated Protein Required (g/day) 45-83 gm/day (0.8-1.5 gm/kg Adj IBW for RF/ wound healing) Estimated Fluid Required (l/day) Defer to MD r/t RF Problem/Etiology/Signs/Symptoms Suboptimal PO intakes related to possible lack of appetite associated w/ cognitive limitations as evidenced by Hx of Alzheimer's, negligible PO intake records and RN report of pt's refusals of meals. (*ongoing) Expected Outcomes/Goals - Monitor provision of EN support w/ goal of pt meeting at least 75% of estimated nutritional needs, labs trending WNL, normal GI function, and skin integrity/wt maintenance. Dietitian Recommendations * Recommend PEG placement. * Consider Glucerna 1.2 at 60ml/hr, Rj BID for EN formula Follow Up High Risk: F/U in 2-3 days
--- NOTE | 2018-11-25 14:22 | NUR ---
Dietitian Recommendations * Recommend PEG placement. * Consider Glucerna 1.2 at 60ml/hr, Rj BID for EN formula Please see Nutrition F/U note for details. JF, RD
[2018-11-25] MEDS: cefTRIAXone 1 GM in D5W 50 ML IV SCH (15:17)
[2018-11-25 15:20] VITALS: BP_SYST 143
[2018-11-25 16:00] VITALS: BP_SYST 154
[2018-11-25 20:00] VITALS: BP_SYST 142
--- NOTE | 2018-11-25 20:00 | NUR ---
Pt is awake and moaning. Family members are visiting at the bedside. Pt was asked if she is in pain and pt said, "No". Skin is warm and dry to touch. No signs or symptoms of hypoglycemia or hyperglycemia noted. Lt foot shasta wrap dressing is dry and intact. Elkins cath to gravity drainage is patent with clear yellowish urine. IVF of D5W is infusing well in LH. Fall and safety precautions are in place. Call light is with pt and bed alarm is on.
[2018-11-25] MEDS: ATORVASTATIN 20 MG TABLET PO SCH (21:42)
[2018-11-25] MEDS: MIRTAZAPINE 15 MG TABLET PO SCH (21:42)
--- NOTE | 2018-11-25 21:42 | NUR ---
HS medications were crushed and given to pt with very small amount of apple sauce per pt's family's request. Pt clenched her teeth together and it took lots of persuasions by pt's family before pt would open her mouth slightly for her HS medications. Family was able to give pt two boxes of Endure to drink without difficulty. Call light is with pt and bed alarm is on.
--- NOTE | 2018-11-25 23:50 | NUR ---
New IV site was started in left thumb with Angiocath 22G after two attempts. IV Angiocath in left hand was removed due to swelling at the site. Fall and safety precautions are in place.
[2018-11-26] MEDS: VANCOMYCIN HCL 750 MG in NS 250 ML IV SCH (00:09)
[2018-11-26 01:34] VITALS: BP_SYST 104
--- NOTE | 2018-11-26 02:00 | NUR ---
Pt is sleeping in bed without any distress noted. IVF is infusing well in Left thumb. Fall and safety precautions are in place. Call light is with pt and bed alarm is on.
--- NOTE | 2018-11-26 03:20 | NUR ---
Pt continues to sleep in bed without any distress noted. Fall and safety precautions are in place. Call light is with pt and bed alarm is on. IVF is infusing well in left thumb.
--- NOTE | 2018-11-26 05:00 | NUR ---
Pt is sleeping comfortably in bed. IVF is infusing well in left thumb. Fall and safety precautions are in place.
--- NOTE | 2018-11-26 06:30 | NUR ---
Late Entry due to Pt Care: Pt is awake and not in any distress. IVF is infusing well in Left thumb. All pt's needs were attended to. Will endorse to day shift nurse.
--- NOTE | 2018-11-26 07:40 | NUR ---
OPENING NOTES: RECEIVED PATIENT FROM EMBEDDED DEVELOPER NURSE. PATIENT IS ASLEEP IN BED. NO SIGNS OF DISTRESS OR SHORTNESS OF BREATH NOTED. IV SITE IS PATENT WITH NO SIGNS OF INFILTRATION. PATIENT IS TOLERATING OXYGEN AT ROOM AIR. LEO CATHETER IS INTACT AND DRAINING BY GRAVITY. PATIENT IN STABLE CONDITION. SAFETY, FALL AND ASPIRATION PRECAUTIONS ARE IN PLACE. BED LOCKED IN LOWEST POSITION WITH CALL LIGHT IN REACH. WILL CONTINUE TO MONITOR PATIENT FOR ANY CHANGES.
[2018-11-26 08:15] VITALS: BP_SYST 127
[2018-11-26] MEDS: ASPIRIN 81 MG TAB.CHEW PO SCH ×2 (09:00→10:22)
[2018-11-26] MEDS: LOSARTAN POTASSIUM 50 MG TABLET (COZAAR) PO SCH ×2 (09:00→10:21)
[2018-11-26] MEDS: ACETAMINOPHEN/CODEINE 300 MG-30 MG TABLET PO SCH ×5 (09:00→22:29)
[2018-11-26] MEDS: NEPHROVITE, (FOLIC ACID/VITAMIN B COMP W-C 1 TAB) PO SCH ×2 (09:00→10:22)
[2018-11-26] MEDS: CYANOCOBALAMIN 1000 mCg TABLET PO SCH ×2 (09:00→10:22)
[2018-11-26] MEDS: FUROSEMIDE 20 MG TABLET PO SCH ×2 (09:00→10:20)
[2018-11-26] MEDS: MEMANTINE HCL 5 MG TABLET PO SCH ×2 (09:00→10:22)
--- NOTE | 2018-11-26 10:20 | NUR ---
RN ROUNDS: PATIENT REFUSED HER ORAL MEDICATIONS. PATIENT DROWSY IN BED AND REFUSED TO OPEN HER MOUTH. PATIENT OPENED HER EYES AND CONTINUED TO GRUNT. PATIENT IN STABLE CONDITION. WILL CONTINUE TO MONITOR PATIENT FOR ANY CHANGES.
[2018-11-26] MEDS: ENOXAPARIN SODIUM 30 MG/0.3 ML SYRINGE SUBCUT SCH (10:23)
[2018-11-26] MEDS: D5W 1,000 ML IV SCH ×3 (10:23→20:33)
[2018-11-26] MEDS: BALSAM PERU/CASTOR OIL 60 GM OINT...G. TP SCH (10:24)
--- NOTE | 2018-11-26 10:37 | NUR ---
Social Service Note- Late Entry for 11/25/18: DEPUTY CONTROLLER spoke with Lars from [facility]. DEPUTY CONTROLLER provided medical update to Lars and contact information for pt's SNF and pt's family. Lars will contact previous facility and family regarding insurance status. DEPUTY CONTROLLER will remain available for support and will follow up as needed.
[2018-11-26] MEDS: MORPHINE 2 MG/ML INJ. SYRINGE IVP PRN ×2 (10:40→15:41)
[2018-11-26 11:33] VITALS: BP_SYST 102
[2018-11-26] MEDS: FLUCONAZOLE 100 mg/ NS 50 ML IV SCH (11:47)
--- NOTE | 2018-11-26 12:15 | NUR ---
RN ROUNDS: PATIENT ASLEEP IN BED. NO SIGNS OF DISTRESS OR SHORTNESS OF BREATH NOTED. PATIENT IN STABLE CONDITION. WILL CONTINUE TO MONITOR PATIENT FOR ANY CHANGES.
[2018-11-26] MEDS: cefTRIAXone 1 GM in D5W 50 ML IV SCH (13:01)
[2018-11-26 15:22] VITALS: BP_SYST 138
--- NOTE | 2018-11-26 18:45 | NUR ---
CLOSING NOTES: PATIENT IS ASLEEP IN BED. NO SIGNS OF DISTRESS OR SHORTNESS OF BREATH NOTED. LEO CATHETER INTACT AND DRAINING BY GRAVITY. IV SITE IS PATIENT WITH NO SIGNS OF INFILTRATION AND RUNNING FLUIDS ORDERED. PATIENT TOLERATING OXYGEN AT ROOM AIR. PATIENT IN STABLE CONDITION. SAFETY, FALL, AND ASPIRATION PRECAUTIONS REMAINED IN PLACE THROUGHOUT THE DAY. BED LOCKED IN LOWEST POSITION WITH CALL LIGHT IN REACH. WILL ENDORSE PATIENT CARE TO ONCOMING EMPLOYMENT LAW ATTORNEY NURSE.
[2018-11-26] MEDS: MIRTAZAPINE 15 MG TABLET PO SCH (22:28)
[2018-11-26] MEDS: ATORVASTATIN 20 MG TABLET PO SCH (22:28)
[2018-11-27] MEDS: D5W 1,000 ML IV SCH ×3 (00:01→17:06)
[2018-11-27 02:01] VITALS: BP_SYST 113
--- NOTE | 2018-11-27 07:30 | NUR ---
OPENING NOTES: RECEIVED PATIENT FROM TREE WRAPPER NURSE. PATIENT IS ASLEEP IN BED. NO SIGNS OF DISTRESS OR SHORTNESS OF BREATH NOTED. IV SITE PATENT WITH NO SIGNS OF INFILTRATION AND RUNNING FLUIDS ORDERED. LEO CATHETER INTACT AND DRAINING BY GRAVITY. PATIENT TOLERATING OXYGEN AT ROOM AIR. PATIENT IN STABLE CONDITION. SAFETY, FALL, AND ASPIRATION PRECAUTIONS ARE IN PLACE. BED LOCKED IN LOWEST POSITION WITH CALL LIGHT IN REACH. WILL CONTINUE TO EDUCATE PATIENT FOR ANY CHANGES.
[2018-11-27 08:19] VITALS: BP_SYST 102
[2018-11-27] MEDS: LOSARTAN POTASSIUM 50 MG TABLET (COZAAR) PO SCH (09:00)
[2018-11-27] MEDS: NEPHROVITE, (FOLIC ACID/VITAMIN B COMP W-C 1 TAB) PO SCH (09:00)
[2018-11-27] MEDS: MEMANTINE HCL 5 MG TABLET PO SCH (09:00)
[2018-11-27] MEDS: ASPIRIN 81 MG TAB.CHEW PO SCH (09:00)
[2018-11-27] MEDS: CYANOCOBALAMIN 1000 mCg TABLET PO SCH (09:00)
[2018-11-27] MEDS: FUROSEMIDE 20 MG TABLET PO SCH (09:00)
[2018-11-27] MEDS: ACETAMINOPHEN/CODEINE 300 MG-30 MG TABLET PO SCH ×4 (09:00→21:16)
[2018-11-27] MEDS: ENOXAPARIN SODIUM 30 MG/0.3 ML SYRINGE SUBCUT SCH (09:58)
[2018-11-27] MEDS: BALSAM PERU/CASTOR OIL 60 GM OINT...G. TP SCH (10:00)
--- NOTE | 2018-11-27 10:15 | NUR ---
RN ROUNDS: PATIENT IS ASLEEP IN BED. NO SIGNS OF DISTRESS OR SHORTNESS OF BREATH NOTED. PATIENT TOLERATING OXYGEN AT ROOM AIR. NO SIGNS OF DISTRESS OR SHORTNESS OF BREATH NOTED. PATIENT IN STABLE CONDITION. WILL CONTINUE TO MONITOR PATIENT FOR ANY CHANGES.
[2018-11-27 11:27] VITALS: BP_SYST 114
[2018-11-27] MEDS: FLUCONAZOLE 100 mg/ NS 50 ML IV SCH (12:17)
--- NOTE | 2018-11-27 12:20 | NUR ---
RN ROUNDS: PATIENT IS ASLEEP IN BED. OPENS EYES TO LIGHT STIMULI. NO SIGNS OF DISTRESS OR SHORTNESS OF BREATH NOTED. PATIENT IN STABLE CONDITION. WILL CONTINUE TO MONITOR PATIENT FOR ANY CHANGES.
[2018-11-27] MEDS: cefTRIAXone 1 GM in D5W 50 ML IV SCH (13:59)
[2018-11-27 15:30] VITALS: BP_SYST 124
[2018-11-27 15:43] LABS: PROTHROMBIN TIME 10.2 SECS (9.5-12.5)
--- NOTE | 2018-11-27 16:15 | NUR ---
RN ROUNDS: PATIENT IS ASLEEP IN BED. NO SIGNS OF DISTRESS OR SHORTNESS OF BREATH NOTED. PATIENT IN STABLE CONDITION. WILL CONTINUE TO MONITOR PATIENT FOR ANY CHANGES.
--- NOTE | 2018-11-27 18:51 | NUR ---
CLOSING NOTES: PATIENT IS ASLEEP IN BED. NO SIGNS OF DISTRESS OR SHORTNESS OF BREATH NOTED. IV SITE PATENT WITH NO SIGNS OF INFILTRATION AND RUNNING FLUIDS ORDERED. PICC LINE INTACT WITH CLEAN, DRY DRESSING. LEO CATHETER INTACT AND DRAINING BY GRAVITY. PATIENT TOLERATING OXYGEN AT ROOM AIR. PATIENT IN STABLE CONDITION. SAFETY, FALL, AND ASPIRATION PRECAUTIONS ARE IN PLACE. BED LOCKED IN LOWEST POSITION WITH CALL LIGHT IN REACH. WILL ENDORSE PATIENT CARE TO ONCOMING SORTER LUMBER STRAIGHTENER NURSE.
--- NOTE | 2018-11-27 19:30 | NUR ---
PM ASSESSMENT REPORT RECEIVED FROM AM RN. PT RECEIVED IN BED WITH EYES OPEN, RESPONDING TO VERBAL STIMULATION. VSS, NO S/S OF ACUTE DISTRESS NOTED. FAMILY IS AT BEDSIDE. PT ON RA. L HAND 22G INFUSING D5NS @ 70 CC/HR, JOSÉ ANTONIO PICC IN PLACE PATENT AND INTACT. LEO CATH IN PLACE DRAINING YELLOW URINE TO GRAVITY. NO S/S OF PAIN OR DISCOMFORT. HOB ELEVATED, BED IN LOWEST POSITION, CALL LIGHT IN REACH. WILL CONTINUE TO MONITOR PT.
[2018-11-27 20:00] VITALS: BP_SYST 132
--- NOTE | 2018-11-27 21:00 | NUR ---
MEDICATION PASS MEDICATIONS CRUSHED INTO APPLESAUCE. PT SHUTS MOUTH WHEN TRYING TO BE FED. FAMILY AT BEDSIDE AND ABLE TO ASSIST WITH MEDICATION PASS. PT ABLE TO TAKE ALL MEDICATION WITH ASSISTANCE OF FAMILY. WILL CONTINUE TO MONITOR PT.
[2018-11-27] MEDS: ATORVASTATIN 20 MG TABLET PO SCH (21:16)
[2018-11-27] MEDS: MIRTAZAPINE 15 MG TABLET PO SCH (21:16)
[2018-11-27] MEDS: VANCOMYCIN HCL 750 MG in NS 250 ML IV SCH (23:14)
[2018-11-28 01:07] VITALS: BP_SYST 162
--- NOTE | 2018-11-28 02:00 | NUR ---
RN ROUNDS PT RESTING COMFORTABLY IN BED WITH EYES CLOSED. BREATHING IS EVEN AND UNLABORED ON RA. NO S/S OF ACUTE DISTRESS NOTED. WILL CONTINUE TO MONITOR PT.
[2018-11-28] MEDS: D5W 1,000 ML IV SCH ×2 (05:01→16:17)
--- NOTE | 2018-11-28 07:10 | NUR ---
rn opening note Patient is appears to be resting with both eyes closed no signs of any distress, breathing is equal and non labored. Patient has all safety precautions in place. Patient has no other needs at this time. will continue to monitor.
--- NOTE | 2018-11-28 07:14 | NUR ---
ENDORSEMENT BEDSIDE REPORT GIVEN TO AM RN USING SBAR APPROACH. NO S/S OF ACUTE DISTRESS NOTED. ALL PT NEEDS MET.
[2018-11-28 09:12] VITALS: BP_SYST 145
[2018-11-28] MEDS: ACETAMINOPHEN/CODEINE 300 MG-30 MG TABLET PO SCH ×4 (09:22→21:31)
[2018-11-28] MEDS: MEMANTINE HCL 5 MG TABLET PO SCH (09:22)
[2018-11-28] MEDS: CYANOCOBALAMIN 1000 mCg TABLET PO SCH (09:22)
[2018-11-28] MEDS: NEPHROVITE, (FOLIC ACID/VITAMIN B COMP W-C 1 TAB) PO SCH (09:23)
[2018-11-28] MEDS: LOSARTAN POTASSIUM 50 MG TABLET (COZAAR) PO SCH (09:23)
[2018-11-28] MEDS: FUROSEMIDE 20 MG TABLET PO SCH (09:23)
[2018-11-28] MEDS: ASPIRIN 81 MG TAB.CHEW PO SCH (09:23)
[2018-11-28] MEDS: BALSAM PERU/CASTOR OIL 60 GM OINT...G. TP SCH (09:24)
[2018-11-28] MEDS: ENOXAPARIN SODIUM 30 MG/0.3 ML SYRINGE SUBCUT SCH (09:25)
--- NOTE | 2018-11-28 09:29 | NUR ---
Medication Addendum: 11/28/18 at 1344 by Matilde Valdivia RN PATIENTS SCHEDULED MEDICATION GIVEN ORDERED. PATIENT TOLERATED WELL. PATIENT HAS ALL SAFETY PRECAUTIONS IN PLACE. PATIENTS BREATHING IS EQUAL AND NON LABORED. WILL CONTINUE TO MONITOR.
[2018-11-28] MEDS: cefTRIAXone 1 GM in D5W 50 ML IV SCH (11:55)
--- NOTE | 2018-11-28 11:57 | NUR ---
MEDICATION/ACCU CHECK PATIENTS SCHEDULED MEDICATION GIVEN ORDERED. PATIENT ACCU CHECK ALSO DONE ORDERED AND INSULIN COVERAGE GIVEN ORDERED. PATIENT HAS ALL SAFETY PRECAUTIONS IN PLACE. PATIENT IS MOANING SCHEDULED PAIN MEDICATION TO BE GIVEN. PATIENT BREATHING IS EQUAL AND NON LABORED. PATIENT HAS NO OTHER NEEDS AT THIS TIME. WILL CONTINUE TO MONITOR.
[2018-11-28] MEDS: INSULIN REGULAR, HUMAN 100 UNITS/ML, 10 ML VIAL (humuLIN R) SUBCUT PRN ×2 (12:03→21:34)
[2018-11-28 12:10] VITALS: BP_SYST 118
--- NOTE | 2018-11-28 13:11 | NUR ---
rn rounding Patient appears to be resting with both eyes closed no signs of any distress,breathing is equal and non labored. All safety precautions in place. Patient has no other needs at this time. will continue to monitor.
--- NOTE | 2018-11-28 15:01 | NUR ---
Nutrition F/U RD reviewed pt's current EMR including diet Hx, physician notes, nursing notes, pertinent labs/meds/procedures, care trends and care activity. Current Diet Order: CCHO, puree diet w/ Glucerna TID, Rj BID x6 days Subjective information: Pt seen resting in bed, moaning, but unable to verbalize needs. Per RN, pt has been refusing meals, and will no open her mouth to eat. Pt has had multiple refusals of meals per EMR records. Pt continues w/ very poor appetite. Bedscale wt taken: 163.7#. Pt has consistently not been meeting estimated nutritional needs for greater than 1 week. Current PO intake: 38% average x2 meals, x2 refusals since last RD visit 11/25/18 Estimated Energy Expenditure (kcals/day) 3333-2229 kcal/day (30-35 kcal/kg Adj IBW wound healing) NEW Estimated Protein Required (g/day) 45-83 gm/day (0.8-1.5 gm/kg Adj IBW for RF/ wound healing) Estimated Fluid Required (l/day) Defer to MD r/t RF Problem/Etiology/Signs/Symptoms Suboptimal PO intakes related to possible lack of appetite associated w/ cognitive limitations as evidenced by Hx of Alzheimer's, negligible PO intake records and RN report of pt's refusals of meals. (*ongoing) Expected Outcomes/Goals - Monitor provision of EN support w/ goal of pt meeting at least 75% of estimated nutritional needs, labs trending WNL, normal GI function, and skin integrity/wt maintenance. Dietitian Recommendations * Recommend GI consult and PEG placement of alternative nutrition support * Consider Glucerna 1.2 at 60 ml/hr, Rj BID for EN formula Follow Up High Risk: F/U in 2-3 days
--- NOTE | 2018-11-28 15:06 | NUR ---
Dietitian Recommendations * Recommend GI consult and PEG placement of alternative nutrition support * Consider Glucerna 1.2 at 60 ml/hr, Rj BID for EN formula LP, RD Please refer to Nutrition F/U for details.
--- NOTE | 2018-11-28 16:20 | NUR ---
IV fluid Patients iv fluid hung as ordered. Patient is wake and alert sitting up in bed, no signs of any distress,breathing is equal and non labored. Patient has all safety precautions in place. patient has call light with her unable to educate on use due to confusion. patient has no other needs at this time. will continue to monitor.
[2018-11-28 16:46] VITALS: BP_SYST 128
--- NOTE | 2018-11-28 17:36 | NUR ---
accu check and medication Accu check and medication given as ordered. no coverage was needed for accu check. patient is awake and alert tolerated well. patient has all safety precautions in place. no signs of any distress, breathing equal and non labored. will continue to monitor.
--- NOTE | 2018-11-28 18:22 | NUR ---
RN CLOSING NOTE PATIENT IS LAYING IN BED NO SIGNS OF ANY DISTRESS, BREATHING IS EQUAL AND NON LABORED. PATIENT HAS ALL SAFETY PRECAUTIONS IN PLACE. CALL LIGHT IS WITH PATIENT UNABLE TO EDUCATE ON USE. PATIENT HAS NO OTHER NEEDS AT THIS TIME. PATIENT IS STABLE.
[2018-11-28 20:00] VITALS: BP_SYST 154
--- NOTE | 2018-11-28 20:00 | NUR ---
Pt is awake and moaning. Family members are visiting at the bedside. Family stated pt moans when she is hungry and they are going to feed her. Skin is warm and dry to touch. No signs or symptoms of hypoglycemia or hyperglycemia noted. Lt foot dressings are dry and intact. Elkins cath to gravity drainage is patent with clear yellowish urine. IVF of D5W is infusing well via JOSÉ ANTONIO PICC at 70ml/hr. PICC dressing is dry and intact. Fall and safety precautions are in place. Call light is with pt and bed alarm is on.
[2018-11-28] MEDS: MIRTAZAPINE 15 MG TABLET PO SCH (21:29)
[2018-11-28] MEDS: ATORVASTATIN 20 MG TABLET PO SCH (21:29)
--- NOTE | 2018-11-28 21:34 | NUR ---
HS accucheck 156 and skin remains warm and dry to touch. 2 units Regular Insulin was given SQ. pt's family stated they will feed pt. IVF is infusing well via JOSÉ ANTONIO PICC. Fall and safety precautions are in place.
[2018-11-29] VITALS (7 sets, daily range): BP systolic 108–144
--- NOTE | 2018-11-29 | NUR ---
Pt is sleeping without any distress noted. IVF is infusing well via JOSÉ ANTONIO PICC. Fall and safety precautions are in place.
--- NOTE | 2018-11-29 02:00 | NUR ---
Pt is sleeping quietly in bed. IVF is infusing well via JOSÉ ANTONIO PICC. Call light is with pt and bed alarm is on.
--- NOTE | 2018-11-29 04:00 | NUR ---
Pt continues to sleep without any distress noted. IVF is infusing well via JOSÉ ANTONIO PICC. Fall and safety precautions are in place.
[2018-11-29] MEDS: D5W 1,000 ML IV SCH ×2 (06:11→20:03)
[2018-11-29] MEDS: INSULIN REGULAR, HUMAN 100 UNITS/ML, 10 ML VIAL (humuLIN R) SUBCUT PRN ×3 (06:15→16:48)
--- NOTE | 2018-11-29 06:39 | NUR ---
Pt is sleeping comfortably in bed without any respiratory distress noted. IVF is infusing well via JOSÉ ANTONIO PICC. Accucheck 163 this AM and 2 units Regular Insulin given SQ. All pt's needs were attended to. Fall and safety precautions are in place. Will endorse to day shift nurse.
--- NOTE | 2018-11-29 07:00 | NUR ---
Wound care performed on both buttocks, abdomen, G Tube site and affected toes per wound care orders.
--- NOTE | 2018-11-29 08:00 | NUR ---
Neuro/Nutrition Patient open eyes to verbal stimuli , doesn't want to open mouth to eat , use syringe to feed/medication patient slowly ,aspiration precaution, tolerates well with out aspiration;BLE kept elevated to pillow to avoid pressure sore dressing dry/intact , repositioned.
[2018-11-29] MEDS: NEPHROVITE, (FOLIC ACID/VITAMIN B COMP W-C 1 TAB) PO SCH (08:06)
[2018-11-29] MEDS: ASPIRIN 81 MG TAB.CHEW PO SCH (08:06)
[2018-11-29] MEDS: ACETAMINOPHEN/CODEINE 300 MG-30 MG TABLET PO SCH ×4 (08:06→21:34)
[2018-11-29] MEDS: FUROSEMIDE 20 MG TABLET PO SCH (08:07)
[2018-11-29] MEDS: LOSARTAN POTASSIUM 50 MG TABLET (COZAAR) PO SCH (08:07)
[2018-11-29] MEDS: MEMANTINE HCL 5 MG TABLET PO SCH (08:07)
[2018-11-29] MEDS: CYANOCOBALAMIN 1000 mCg TABLET PO SCH (08:07)
[2018-11-29] MEDS: ENOXAPARIN SODIUM 30 MG/0.3 ML SYRINGE SUBCUT SCH (08:08)
[2018-11-29] MEDS: BALSAM PERU/CASTOR OIL 60 GM OINT...G. TP SCH (10:23)
--- NOTE | 2018-11-29 10:30 | NUR ---
Wound care in the left buttock completed documented in the flow sheet , perineal care given, repositioned
[2018-11-29] MEDS: cefTRIAXone 1 GM in D5W 50 ML IV SCH (11:31)
--- NOTE | 2018-11-29 12:30 | NUR ---
Patient is more awake assisted in feeding using syringe ,but patient is spitting the food aspiration precaution , even medication after its in the mouths she spitted also , on IV FLUID will monitor.
--- NOTE | 2018-11-29 14:37 | NUR ---
Patient repositioned by staff every 2 hours with pillow support., aspiration precaution , fed patient by ensure mix with leona by syringe tolerated well no aspiration.
--- NOTE | 2018-11-29 16:06 | NUR ---
Wound care in the left foot completed assessment documented in the flow sheet, BLE kept supported by pillow to avoid pressure sore,no facial grimace no moaning while doing the dressing.
[2018-11-29] MEDS ORDERED: BISACODYL 10 MG/SUPPOSITORY RC PRN (16:45)
--- NOTE | 2018-11-29 17:10 | NUR ---
Neuro/GI/COMFORT Patient repositioned by staff every 2 hours with pillow support.,more awake, follow simple instruction open her mouth for oral care , no documented BM since admission DR. Murguia informed Dulcolax suppository given will monitor sacral dressing intact.
--- NOTE | 2018-11-29 17:45 | NUR ---
Patient is moaning/pushing vital sign stable due pain medication given will monitor.
[2018-11-29] MEDS: MORPHINE 2 MG/ML INJ. SYRINGE IVP PRN (17:47)
--- NOTE | 2018-11-29 18:42 | NUR ---
Patient unable to take oral intake pocketing food inside the mouth , no aspiration, daughter at the bedside updated regarding patient progress, will monitor.
--- NOTE | 2018-11-29 19:15 | NUR ---
change of shift.pt.presents picc line;location;rt,bicept.iv fluids infusing.pt.presents pink cath intact;patent;urine content present. pt.presents wounds;sacrum,lt.foot.language barrier extant;malagasy.family;dtr's present.provide interpretation.call light/telephone w/in reach of the pt.
--- NOTE | 2018-11-29 20:00 | NUR ---
pt.assessed.v/s assessed:values w/in normal limits.pt.presents language barrier;family;dtr's translate. pt.presents picc line;location;rt/.bicept.i have placed alert sign;above hob.picc line intact patent;iv fluids infusing.pink cath intact;patent;urine content present.pt.assessed for cleanliness.pt.repositioned.salvatore light/ telephone placed w/in reach of the pt.
--- NOTE | 2018-11-29 21:00 | NUR ---
2100p medications administered.meds crushed mixed w/apple sauce.family requested apple juice.i have provided the apple juice.
[2018-11-29] MEDS: ATORVASTATIN 20 MG TABLET PO SCH (21:32)
[2018-11-29] MEDS: MIRTAZAPINE 15 MG TABLET PO SCH (21:33)
[2018-11-29] MEDS: CILOSTAZOL 50 MG TABLET (PLETAL) PO SCH (21:33)
--- NOTE | 2018-11-29 22:00 | NUR ---
pt.assessed pt.assessed for cleanliness.pt.repositioned.picc line intact patent,pink cath intact patent. call light/telephone placed w/in reach of the pt.
[2018-11-30] VITALS (7 sets, daily range): BP systolic 104–192
--- NOTE | 2018-11-30 | NUR ---
pt.assessed.v/s assessed:values win normal limits.pt.assessed for cleanliness.pt.cleaned.pt.repositioned. picc line intact;patent,pink cath intact;patent.call light/telephone placed w/in reach of the pt.
--- NOTE | 2018-11-30 01:00 | NUR ---
i have ated to the wound care per wcn guidelines.
--- NOTE | 2018-11-30 02:00 | NUR ---
pt.assessed pt.assessed for cleanliness.pt.repositioned.picc line intact patent.pink cath intact patent. call light/telephone placed w/in reach ofd the pt.
--- NOTE | 2018-11-30 03:00 | NUR ---
pt moaning.i have assd ttht pt re:pain mgx;flacc.pt.presentsrt facial grimaces.body posturing.i have administered morphine;2mg ivp. via th picc lione.to f/u re;pain medicaton eficacy nper pain magx protocol.i have changed the iv fluids bag.
[2018-11-30] MEDS: MORPHINE 2 MG/ML INJ. SYRINGE IVP PRN (03:37)
[2018-11-30] MEDS: D5W 1,000 ML IV SCH ×2 (03:39→23:25)
--- NOTE | 2018-11-30 04:00 | NUR ---
pt.assessed.pt.presents quiescent affect;calm,somnolent.pt.assessed for cleanliness.pt.repositioned.picc line assessed intact;patent;iv fluids infusing. i have changed the iv fluids bag.pink cath intact;patent;urine content present.general status stable.respiratory status stable;unlabored @room air.call light/telephone placed w/in reach of the pt.
[2018-11-30] MEDS: INSULIN REGULAR, HUMAN 100 UNITS/ML, 10 ML VIAL (humuLIN R) SUBCUT PRN ×3 (06:14→21:44)
--- NOTE | 2018-11-30 06:15 | NUR ---
pt.assessed.i have assessed the blood glucose;value;167mg/dl.i have administered insulin;regular;2-units.picc line intact patent iv fluids infusing.pt.assessed for cleanliness.pt.repositioned.pink cath intact;patent.i have weighed the pt:2/t chf.call light/ telephone placed w/in reach.of the pt.
[2018-11-30 07:17] LABS: BASOPHILS % (AUTO) 0.5 % (0.0-2.0); EOSINOPHILS # (AUTO) 0.8 K/uL (0.0-0.4); EOSINOPHILS % (AUTO) 9.5 % (0.0-4.0); HEMATOCRIT 29.4 % (36-48); HEMOGLOBIN 9.9 g/dL (12.0-16.0); LYMPHOCYTES # (AUTO) 2.9 K/uL (1.0-5.5); LYMPHOCYTES % (AUTO) 33.3 % (20.5-51.5); MEAN CORPUSCULAR HEMOGLOBIN 30 pg (27-31); MEAN CORPUSCULAR HGB CONC 34 % (32-36); MEAN CORPUSCULAR VOLUME 90 fL (79.0-98.0); MONOCYTES # (AUTO) 0.9 K/uL (0.0-1.0); MONOCYTES % (AUTO) 10.1 % (1.7-9.3); NEUTROPHILS % (AUTO) 46.6 % (40.0-70.0); PLATELET COUNT (AUTO) 185 K/uL (130-430); RED BLOOD CELL COUNT(AUTO) 3.26 MIL/uL (4.2-6.2); RED CELL DISTRIBUTION WIDTH 14.7 % (9.0-15.0); WHITE BLOOD COUNT (AUTO) 8.7 K/uL (4.8-10.8)
[2018-11-30 07:33] LABS: ALANINE AMINOTRANSFERASE 25 U/L (12-78); ANION GAP 3 (5-15); ASPARTATE AMINOTRANSFERASE 33 U/L (10-37); CALCIUM 8.4 mg/dL (8.4-11.0); CHLORIDE 102 mmol/L (98-107); CREATININE 1.68 mg/dL (0.55-1.30); GLUCOSE 167 mg/dL (70-99); POTASSIUM 4.4 mmol/L (3.5-5.1); SODIUM SERUM 132 mmol/L (136-145); TOTAL BILIRUBIN 0.4 mg/dL (0.0-1.0); UREA NITROGEN, BLOOD 49 mg/dL (8-21)
[2018-11-30] MEDS: MEMANTINE HCL 5 MG TABLET PO SCH (09:00)
[2018-11-30] MEDS: ASPIRIN 81 MG TAB.CHEW PO SCH (09:00)
[2018-11-30] MEDS: CYANOCOBALAMIN 1000 mCg TABLET PO SCH (09:00)
[2018-11-30] MEDS: NEPHROVITE, (FOLIC ACID/VITAMIN B COMP W-C 1 TAB) PO SCH (09:00)
[2018-11-30] MEDS: FUROSEMIDE 20 MG TABLET PO SCH (09:00)
[2018-11-30] MEDS: ACETAMINOPHEN/CODEINE 300 MG-30 MG TABLET PO SCH ×4 (09:00→21:00)
[2018-11-30] MEDS: LOSARTAN POTASSIUM 50 MG TABLET (COZAAR) PO SCH (09:00)
[2018-11-30] MEDS: CILOSTAZOL 50 MG TABLET (PLETAL) PO SCH ×2 (09:00→21:00)
--- NOTE | 2018-11-30 09:00 | NUR ---
pt still very sleepy. offered breakfast, very lethargic, open eyes very briefly and goes back to sleep. will cont to monitor.
[2018-11-30] MEDS: ENOXAPARIN SODIUM 30 MG/0.3 ML SYRINGE SUBCUT SCH (09:53)
[2018-11-30] MEDS: BALSAM PERU/CASTOR OIL 60 GM OINT...G. TP SCH (09:56)
--- NOTE | 2018-11-30 10:00 | NUR ---
pt daughter at bedside, pt still not waking up since this am, pt was given tylenol#3 at 2130 and ms at 0330 this am. rechecked pt blood sugar , it was 138.
--- NOTE | 2018-11-30 10:20 | NUR ---
pt wound dressing on left foot, pt tolerated well. turned and repositioned. family at bedside.
--- NOTE | 2018-11-30 10:50 | NUR ---
dr cotto was here and seen pt. aware that pt is very lethargic.
[2018-11-30] MEDS: cefTRIAXone 1 GM in D5W 50 ML IV SCH (12:46)
--- NOTE | 2018-11-30 12:51 | NUR ---
abx given, pt still not waking up, turned and repositioned.
--- NOTE | 2018-11-30 13:30 | NUR ---
Pt offered apple sauce to check if she will take medication. pt refused to open mouth. will check again later.
--- NOTE | 2018-11-30 14:00 | NUR ---
pt refused to open mouth again, unable to give 1300 med. will check again.
--- NOTE | 2018-11-30 16:00 | NUR ---
pt awaken , offered apple chair to give with medication. pt does not open mouth.
--- NOTE | 2018-11-30 17:10 | NUR ---
pt took medication with apple sauce.
--- NOTE | 2018-11-30 19:20 | NUR ---
closing notes, pt has been stable, no fever. no sob, no c/o pain, all abx given. pt am and noon time meds offered, pt unable to give po meds as pt is very lethargic, able to give po med with apple sauce for 1700. endorsed to night zeynep domínguez.
--- NOTE | 2018-11-30 19:25 | NUR ---
Initial Notes Received handoff report from [facility] nurse Sow-MEGAN at the bedside. Patient is resting comfortably in bed, eyes closed. Breathing even and unlabored. Visible chest rise and fall noted. IV site intact, dressing clean and dry, currently infusing IVF per MD order, see eMAR. Bed is locked, in the lowest position, 2x side rails up, bed alarm is on. Call light is within reach. Family is at the bedside. Instructed family to call for assistance if needed, and also educated them on how to use the call light system. Will continue with plan of care. Addendum: 11/30/18 at 2204 by Jennifer Youngblood RN CORRECTION* PATIENT DOES NOT HAVE AN IV SITE. PATIENT HAS A PICC LINE SITE IN THE RIGHT UPPER ARM, DRESSING CLEAN AND DRY, CURRENTLY INFUSING IVF PER MD ORDER, SEE EMAR.
--- NOTE | 2018-11-30 19:57 | NUR ---
PAGE PAGED DOCTOR LOUIS.
--- NOTE | 2018-11-30 20:00 | NUR ---
EDUCATED DAUGHTERALEXIS AT THE BEDSIDE REGARDING CALLING FOR ASSISTANCE IF NEEDED AND CURRENT MEDICATIONS THE DOCTOR HAS ORDERED. DAUGHTERALEXIS VERBALIZES UNDERSTANDING AT THIS TIME.
--- NOTE | 2018-11-30 20:30 | NUR ---
PAGED PAGED DOCTOR MELVIN FOR ORDERS
[2018-11-30] MEDS: MIRTAZAPINE 15 MG TABLET PO SCH (21:00)
[2018-11-30] MEDS: ATORVASTATIN 20 MG TABLET PO SCH (21:00)
--- NOTE | 2018-11-30 21:08 | NUR ---
PAGED PAGED DOCTOR MELVIN FOR 2 TIME
--- NOTE | 2018-11-30 21:10 | NUR ---
DR MELVIN, WHO IS COVERING FOR DR LOUIS, CALLED THE NURSES STATION. INFORMED DR MELVIN THAT THE PATIENT'S BLOOD PRESSURE AT 1999 WAS 192/153; HOWEVER, NOW THE BLOOD PRESSURE IS 104/57, HR 106. DR MELVIN ORDERED VASOTEC INJ 1.25MG IVP PRN Q6 FOR SBP > 150. CHARGE NURSE ALSO MADE AWARE OF PATIENT'S BLOOD PRESSURE. CHANGED THE BLOOD PRESSURE CUFF TO A NEW ONE, AND RETOOK THE BLOOD PRESSURE. BLOOD PRESSURE 96/53, HR 98. Addendum: 11/30/18 at 2200 by Jennifer Youngblood RN CONTINUATION OF NOTES ALSO INFORMED DR MELVIN THAT THE PATIENT IS DROWSY AND UNABLE TO TAKE ANY MEDICATIONS BY MOUTH.
[2018-11-30] MEDS ORDERED: ENALAPRILAT DIHYDRATE 1.25 MG/ML VIAL IVP PRN (21:30)
--- NOTE | 2018-11-30 21:40 | NUR ---
DAUGHTER-MAMAT STATES THAT SHE IS NOW LEAVING THE HOSPITAL. WILL CONTINUE WITH PLAN OF CARE.
--- NOTE | 2018-11-30 21:50 | NUR ---
PATIENT IS RESTING COMFORTABLY IN BED, EYES CLOSED. BREATHING EVEN AND UNLABORED WITH VISIBLE CHEST RISE AND FALL NOTED. NO SOB, NO ACUTE DISTRESS, NO SIGNS OF PAIN OR FACIAL GRIMACING NOTED. IVF INFUSING PER MD ORDER IN THE RIGHT UPPER ARM PICC LINE. NO SIGNS OF INFILTRATION OR REDNESS AT THIS TIME. BED IS LOCKED, IN THE LOWEST POSITION, 2X SIDE RAILS UP, BED ALARM IS ON. CALL LIGHT IS WITHIN REACH.
--- NOTE | 2018-11-30 23:16 | NUR ---
PATIENT RESTING COMFORTABLY IN BED, EYES ARE CLOSED. VISIBLE CHEST RISE AND FALL NOTED. ABLE TO OPEN EYES IN RESPONSE TO VERBAL STIMULI WHEN SAYING THE PATIENT'S NAME. HOWEVER, UNABLE TO MAKE OTHER NEEDS KNOWN. PATIENT IS DROWSY, AND FALLS ASLEEP SHORTLY AFTER WAKING UP. NO FACIAL GRIMACING OR SIGNS OF PAIN NOTED. PATIENT IS CURRENTLY CLEAN AND DRY. WILL CONTINUE WITH PLAN OF CARE.
[2018-12-01 00:19] VITALS: BP_SYST 111
--- NOTE | 2018-12-01 00:42 | NUR ---
Patient resting comfortably in bed, eyes closed. Breathing even and unlabored with visible chest rise and fall noted. No Signs of pain or facial grimacing. IVF infusing per MD order, see eMAR. Call light within reach.
--- NOTE | 2018-12-01 03:00 | NUR ---
PATIENT RESTING COMFORTABLY IN BED, EYES CLOSED. BREATHING EVEN AND UNLABORED. NOTED WITH VISIBLE CHEST RISE AND FALL NOTED. CALL LIGHT WITHIN REACH.
--- NOTE | 2018-12-01 04:30 | NUR ---
BANJO REPAIR PERSON AT THE BEDSIDE TO DRAW BLOOD FROM THE PATIENT.
[2018-12-01 06:21] LABS: ALANINE AMINOTRANSFERASE 29 U/L (12-78); ALBUMIN 1.8 g/dL (3.4-4.8); ANION GAP 3 (5-15); ASPARTATE AMINOTRANSFERASE 27 U/L (10-37); CALCIUM 7.9 mg/dL (8.4-11.0); CHLORIDE 96 mmol/L (98-107); CREATININE 1.56 mg/dL (0.55-1.30); GLUCOSE 287 mg/dL (70-99); POTASSIUM 4.1 mmol/L (3.5-5.1); SODIUM SERUM 126 mmol/L (136-145); TOTAL BILIRUBIN 0.3 mg/dL (0.0-1.0); UREA NITROGEN, BLOOD 41 mg/dL (8-21)
--- NOTE | 2018-12-01 06:52 | NUR ---
Closing Notes Patient is resting comfortably in bed, eyes closed, visible chest rise and fall noted. No SOB, no acute distress, no signs of pain at this time. IV site intact, dressing clean and dry, currently infusing ivf per MD order, see eMAR. Bed is locked, in the lowest position, 2x side rails up. Call light within reach. Fall and safety precautions maintained. All needs have been met during this shift. Will endorse care to oncoming dayshift nurse. Addendum: 12/01/18 at 0653 by Jennifer Youngblood RN CORRECTION* Closing Notes Patient is resting comfortably in bed, eyes closed, visible chest rise and fall noted. No SOB, no acute distress, no signs of pain at this time. PICC LINE site intact, dressing clean and dry, currently infusing ivf per MD order, see eMAR. Bed is locked, in the lowest position, 2x side rails up. Call light within reach. Fall and safety precautions maintained. All needs have been met during this shift. Will endorse care to oncoming dayshift nurse.
--- NOTE | 2018-12-01 07:23 | NUR ---
CONSULTATION CALLED FOR ARYAN CAPELLAN ORDER BY RACHEL MORAN FOR CONSULT OF ALOC SPOKE WITH EVANGELISTA
--- NOTE | 2018-12-01 07:55 | NUR ---
Initial Note: Received report from safety instructor nurse. pt is sleeping in bed, arousal to name and light shaking. IV access is intact. Rise and fall of chest noted, no signs of distress noted. safety precautions on place: bed locked in lowest position, bed alarm on, call light within reach. Will continue to monitor pt.
[2018-12-01 08:03] VITALS: BP_SYST 133
[2018-12-01] MEDS: CYANOCOBALAMIN 1000 mCg TABLET PO SCH (08:34)
[2018-12-01] MEDS: MEMANTINE HCL 5 MG TABLET PO SCH (08:34)
[2018-12-01] MEDS: CILOSTAZOL 50 MG TABLET (PLETAL) PO SCH ×2 (08:35→21:08)
[2018-12-01] MEDS: FUROSEMIDE 20 MG TABLET PO SCH (08:35)
[2018-12-01] MEDS: ACETAMINOPHEN/CODEINE 300 MG-30 MG TABLET PO SCH ×4 (08:36→21:08)
[2018-12-01] MEDS: LOSARTAN POTASSIUM 50 MG TABLET (COZAAR) PO SCH (08:37)
[2018-12-01] MEDS: ASPIRIN 81 MG TAB.CHEW PO SCH (08:37)
[2018-12-01] MEDS: NEPHROVITE, (FOLIC ACID/VITAMIN B COMP W-C 1 TAB) PO SCH (08:37)
[2018-12-01] MEDS: ENOXAPARIN SODIUM 30 MG/0.3 ML SYRINGE SUBCUT SCH (08:38)
[2018-12-01] MEDS: BALSAM PERU/CASTOR OIL 60 GM OINT...G. TP SCH (08:39)
--- NOTE | 2018-12-01 10:30 | NUR ---
wound dressing changed, pt cleaned for soiling , turned and repositioned.
[2018-12-01] MEDS: cefTRIAXone 1 GM in D5W 50 ML IV SCH (12:17)
[2018-12-01] MEDS: INSULIN REGULAR, HUMAN 100 UNITS/ML, 10 ML VIAL (humuLIN R) SUBCUT PRN ×2 (12:21→17:06)
[2018-12-01 12:23] VITALS: BP_SYST 99
--- NOTE | 2018-12-01 13:41 | NUR ---
PT IS SLEEPING IN BED. DAUGHTERS ARE AT BEDSIDE. RISE AND FALL OF CHEST NOTED, NO DISTRESS AT THIS TIME. WILL CONTINUE PLAN OF CARE.
--- NOTE | 2018-12-01 14:36 | NUR ---
CONSULTATION CALLED FOR KAYCEE FIELDS ORDER BY OLEGARIO MANZANO FOR CONSULT OF ABDOMINAL DISTENTION SPOKE WITH EVANGELISTA
--- NOTE | 2018-12-01 16:00 | NUR ---
TURNED AND REPOSITIONED PT. FAMILY AT BEDSIDE.
[2018-12-01 16:20] VITALS: BP_SYST 108
--- NOTE | 2018-12-01 18:06 | NUR ---
Nutrition F/U RD reviewed pt's current EMR including diet Hx, physician notes, nursing notes, pertinent labs/meds/procedures, care trends, and care activity. Current Diet Order: CCHO, puree diet w/ Glucerna TID, Rj BID x9 days Subjective information: Pt seen resting in bed, and unable to verbalize needs earlier todat. Per RN, pt's family offered pt Glucerna x3 earlier today, and now pt is very distended. RN reported that GI will come to see the pt, and a NGT and KUB may be done. PO intake records consistently reveal negligible PO intakes since admission (12 days). Current PO intake: 4% average x2 meals Estimated Energy Expenditure (kcals/day) 6106-0497 kcal/day (30-35 kcal/kg Adj IBW wound healing) NEW Estimated Protein Required (g/day) 45-83 gm/day (0.8-1.5 gm/kg Adj IBW for RF/ wound healing) Estimated Fluid Required (l/day) Defer to MD r/t RF Problem/Etiology/Signs/Symptoms Suboptimal PO intakes related to possible lack of appetite associated w/ cognitive limitations as evidenced by Hx of Alzheimer's, negligible PO intake records and RN report of pt's refusals of meals. (*ongoing) Expected Outcomes/Goals - Monitor provision of EN support w/ goal of pt meeting at least 75% of estimated nutritional needs, labs trending WNL, normal GI function, and skin integrity/wt maintenance. Dietitian Recommendations * Recommend continuing CCHO, puree diet w/ Glucerna TID, Rj BID * Encourage increase PO intakes * Recommend GI consult and PEG placement of alternative nutrition support * Consider Glucerna 1.2 at 60 ml/hr, Rj BID for EN formula Follow Up High Risk: F/U in 2-3 days
--- NOTE | 2018-12-01 18:12 | NUR ---
Dietitian Recommendations * Recommend continuing CCHO, puree diet w/ Glucerna TID, Rj BID * Encourage increase PO intakes * Recommend GI consult and PEG placement of alternative nutrition support * Consider Glucerna 1.2 at 60 ml/hr, Rj BID for EN formula LP, RD Please refer to Nutrition F/U for details.
--- NOTE | 2018-12-01 18:54 | NUR ---
RN END OF SHIFT NOTE: PT IS CURRENTLY SLEEPING IN BED. RISE AND FALL OF CHEST NOTED, NO DISTRESS AT THIS TIME. NO PAIN NOTED VIA SONG RODRIGUEZ SCALE. IV FLUIDS DISCONTINUED, IV ACCESS INTACT, CURRENTLY TKO. SAFETY PRECAUTIONS IN PLACE: BED LOCKED IN LOWEST POSITION, ALARM ON, CALL LIGHT WITHIN REACH, WILL ENDORSE CARE TO RUBBER TUBING BACKER NURSE.
[2018-12-01 19:00] VITALS: BP_SYST 125
--- NOTE | 2018-12-01 19:15 | NUR ---
change of shift.pt.presents picc line,pink cath.iv fluids infusing.pt.general status stable.respiratory status stable@room air.dtr has apprised me to not administer morphine;pt.presents profound somnolent status post morphine.administration.call light/telephen w/in reach of the pt.
[2018-12-01 20:00] VITALS: BP_SYST 125
--- NOTE | 2018-12-01 20:00 | NUR ---
pt.assessed.v/s assessed;values w/in normal limits.pt.assessed for cleanliness.pt.repositioned.picc line intact;patent iv fluids infusing.pink cath intact patent urine content present.general status stable.respiratory status stable;unlabored:02-sat5=96%. call light/telephone placed w/in reach of the pt.
--- NOTE | 2018-12-01 20:30 | NUR ---
i have assessed the the blood glucose:value;126mg/dl.
--- NOTE | 2018-12-01 21:00 | NUR ---
2100p medications administer.i have crushed the medication mixture:apple juice.pt.consumed the medications w/out complications.
[2018-12-01] MEDS: ATORVASTATIN 20 MG TABLET PO SCH (21:08)
[2018-12-01] MEDS: MIRTAZAPINE 15 MG TABLET PO SCH (21:09)
--- NOTE | 2018-12-01 22:00 | NUR ---
pt.assessed.pt.presents quiescent affect;calm,somnolent.pt.assessed for cleanliness.pt.repositioned.picc line intact;patent iv fluids infusing.pink cath intact;patent;urine content present.general status stable.respiratory status stable:02-sat%=96% call light/telephone placed w/in reach of the pt.
[2018-12-02] VITALS: BP_SYST 140
--- NOTE | 2018-12-02 | NUR ---
pt.assessed.v/s assessed;values normal limits.pt.presents quiescent affect;calm,somnolent.picc line intact patent.iv fluids infusing. pink cath intact patent urine content present.pt.assessed for cleanliness.pt.repositioned.general status stable.respiratory status stable. 02-sat%=96%.call ligth/telephone placed w/in reach of the pt.
--- NOTE | 2018-12-02 02:00 | NUR ---
pt.assessed.pt.presents quiescent affect;calm,somnolent.pt.assessed for cleanliness.pt.repositioned.picc line assessed ;intact;patent:iv fluids infusing. pink cath assessed intact;patent;urine content present.general status stable.respiratory status stable;unlabored. 02-sat%=96%.call light placed w/in reach of the pt.
--- NOTE | 2018-12-02 04:00 | NUR ---
pt.assessed pt.presents quiescent affect;calm,somnolent.picc line intact patent iv fluids infusing.pink cath intact;patent urine content present.pt.assessed for cleanliness.pt.repositioned.general status stable;respiratory status stable:02-sat% =96%. call light/telephone placed w/in reach of the pt.
--- NOTE | 2018-12-02 04:44 | NUR ---
Swallow/Oral Eval Called Called and left a message for Grace regarding swallow eval, ordered by Dr. Murguia.
--- NOTE | 2018-12-02 06:00 | NUR ---
pt.assessed.pt.presents quiescent affect;calm,somnolent.pt.assessed for cleanliness.pt.repositioned.picc line intact patent. iv fluids;d5w flush infusing@tko. pink cath intact;patent;urine content present.i have assessed the blood glucose;[id number]/dl.i have weighed the pt.2/t chf/lasix. general status stable.respiratory status stable:2-sat%=96%call light/telephone placed w/in the reach of the pt.
--- NOTE | 2018-12-02 07:35 | NUR ---
INITIAL NOTE BEDSIDE SBAR REPORT RECEIVED BY CIGARETTE PACKING MACHINE OPERATOR RN. PT RESTING IN BED. NO ACUTE DISTRESS NOTED. BREATHING EVEN AND UNLABORED. CALL LIGHT WITHIN REACH, BED IN LOW AND LOCKED POSITION WITH BED ALARM ON.
[2018-12-02 08:00] VITALS: BP_SYST 115
[2018-12-02 08:06] LABS: BASOPHILS # (AUTO) 0.1 K/uL (0.0-0.2); BASOPHILS % (AUTO) 0.6 % (0.0-2.0); EOSINOPHILS # (AUTO) 1.1 K/uL (0.0-0.4); HEMATOCRIT 27.9 % (36-48); HEMOGLOBIN 9.5 g/dL (12.0-16.0); LYMPHOCYTES % (AUTO) 27.8 % (20.5-51.5); MEAN CORPUSCULAR HEMOGLOBIN 31 pg (27-31); MEAN CORPUSCULAR HGB CONC 34 % (32-36); MEAN CORPUSCULAR VOLUME 90 fL (79.0-98.0); MONOCYTES % (AUTO) 9.2 % (1.7-9.3); NEUTROPHILS # (AUTO) 5.7 K/uL (1.8-7.7); NEUTROPHILS % (AUTO) 52.4 % (40.0-70.0); PLATELET COUNT (AUTO) 239 K/uL (130-430); RED CELL DISTRIBUTION WIDTH 14.2 % (9.0-15.0); WHITE BLOOD COUNT (AUTO) 10.8 K/uL (4.8-10.8)
[2018-12-02 08:28] LABS: ALANINE AMINOTRANSFERASE 28 U/L (12-78); ALBUMIN 2.2 g/dL (3.4-4.8); ANION GAP 6 (5-15); ASPARTATE AMINOTRANSFERASE 28 U/L (10-37); CALCIUM 8.7 mg/dL (8.4-11.0); CHLORIDE 102 mmol/L (98-107); CREATININE 1.73 mg/dL (0.55-1.30); GLUCOSE 112 mg/dL (70-99); POTASSIUM 4.3 mmol/L (3.5-5.1); SODIUM SERUM 136 mmol/L (136-145); TOTAL BILIRUBIN 0.4 mg/dL (0.0-1.0); UREA NITROGEN, BLOOD 41 mg/dL (8-21)
[2018-12-02] MEDS: ACETAMINOPHEN/CODEINE 300 MG-30 MG TABLET PO SCH ×4 (09:00→22:15)
--- NOTE | 2018-12-02 09:30 | NUR ---
RN ROUNDS PT RESTING IN BED, NO ACUTE DISTRESS NOTED, BREATHING EVEN AND UNLABORED.
[2018-12-02] MEDS ORDERED: MINERAL OIL 133 ML ENEMA RC ONE (09:45)
[2018-12-02] MEDS: BALSAM PERU/CASTOR OIL 60 GM OINT...G. TP SCH (10:07)
[2018-12-02] MEDS: PANTOPRAZOLE SODIUM 40 MG/VIAL (PROTONIX) IVP SCH (10:07)
[2018-12-02] MEDS: FUROSEMIDE 20 MG TABLET PO SCH (10:08)
[2018-12-02] MEDS: LOSARTAN POTASSIUM 50 MG TABLET (COZAAR) PO SCH (10:08)
[2018-12-02] MEDS: MEMANTINE HCL 5 MG TABLET PO SCH (10:09)
[2018-12-02] MEDS: CILOSTAZOL 50 MG TABLET (PLETAL) PO SCH ×2 (10:09→22:16)
[2018-12-02] MEDS: NEPHROVITE, (FOLIC ACID/VITAMIN B COMP W-C 1 TAB) PO SCH (10:09)
[2018-12-02] MEDS: CYANOCOBALAMIN 1000 mCg TABLET PO SCH (10:09)
[2018-12-02] MEDS: ASPIRIN 81 MG TAB.CHEW PO SCH (10:09)
[2018-12-02] MEDS: ENOXAPARIN SODIUM 30 MG/0.3 ML SYRINGE SUBCUT SCH (10:27)
--- NOTE | 2018-12-02 11:30 | NUR ---
RN ROUNDS PT RESTING IN BED, NO ACUTE DISTRESS NOTED, BREATHING EVEN AND UNLABORED.
--- NOTE | 2018-12-02 11:47 | NUR ---
CONSULTATION PAGED/CALLED Reason for Consultation: G-TUBE Person Who was Notified: EXCHANGE PERSON Consulting Physician: Baseball Coach Specialty: GI Ordering Physician:
[2018-12-02 12:00] VITALS: BP_SYST 114
[2018-12-02] MEDS: cefTRIAXone 1 GM in D5W 50 ML IV SCH (12:08)
--- NOTE | 2018-12-02 13:00 | NUR ---
RN ROUNDS PT MOANING, SCHEDULED PAIN MEDICATION GIVEN, WILL REASSESS LATER.
--- NOTE | 2018-12-02 14:06 | NUR ---
S.T. SWALLOW EVAL SWALLOW RE-EVAL COMPLETED. PT PRESENTS W/ SEV PRE-ORAL, ORAL, AND PHARYNGEAL DYSPHAGIA W/ ORAL DEFENSIVENESS, POOR BOLUS HITTING COACH, ABSENT BOLUS MANIPULATION, AND ABSENT SWALLOW. PT IS AT HIGH RISK FOR ASPIRATION, MALNUTRITION, AND DEHYDRATION. NO SIGNIFICANT CHANGE FROM PREVIOUS EVAL. REC: NPO. MAY NEED TO CONSIDER SECURITIES BROKER FEEDING OPTIONS: GT VS HOSPICE. NURSE NITIN NOTIFIED. [id number] CM G8997 CM G8998 CM NOMS LEVEL 2
--- NOTE | 2018-12-02 15:15 | NUR ---
RN ROUNDS PT RESTING IN BED, NO ACUTE DISTRESS NOTED, BREATHING EVEN AND UNLABORED.
[2018-12-02 16:00] VITALS: BP_SYST 104
--- NOTE | 2018-12-02 17:29 | NUR ---
WOUND CARE WOUND CARE PERFORMED, PT TOLERATED WELL, CULTURES COLLECTED. REFER TO MST TO WOUND CARE TREATMENT.
--- NOTE | 2018-12-02 19:38 | NUR ---
PAGED I PAGED DR. GUILLAUME @ 1937 I SPOKE WITH NINA EVANGELISTA GUILLAUME CALLED BACK @ 1950
--- NOTE | 2018-12-02 19:53 | NUR ---
CLOSING NOTE BEDSIDE SBAR REPORT GIVEN TO PIECE WORK CHECKER RN. PT RESTING IN BED, NO ACUTE DISTRESS NOTED, FAMILY AT BEDSIDE. CALL LIGHT WITHIN REACH, BED IN LOW AND LOCKED POSITION WITH BED ALARM ON. PT CARE ENDORSED TO PIECE WORK CHECKER RN.
--- NOTE | 2018-12-02 19:53 | NUR ---
Call placed to Dr. Chinchilla special education teachers for Dr. Jamison: Call placed to Dr. Chinchilla and made her aware that patient fell swallowing evaluation twice already and and has been NPO and no IV fluids on going. Gave new order, noted and carried out.
[2018-12-02] MEDS: D5NS 1,000 ML IV SCH (20:55)
--- NOTE | 2018-12-02 21:25 | NUR ---
PAGED I PAGED DR. GUILLAUME @ [phone] I SPOKE WITH KYLAH NAIDU
[2018-12-02] MEDS: MIRTAZAPINE 15 MG TABLET PO SCH (22:15)
[2018-12-02] MEDS: ATORVASTATIN 20 MG TABLET PO SCH (22:16)
--- NOTE | 2018-12-02 23:05 | NUR ---
DR. YU CALLED BACK AT [phone]
[2018-12-03 00:28] VITALS: BP_SYST 103
--- NOTE | 2018-12-03 02:50 | NUR ---
Assumed care from Registry nurse Sidhu.
--- NOTE | 2018-12-03 06:07 | NUR ---
Closing notes Pt asleep, easily arousable, pt moans. IVF infusing at ordered rate JOSÉ ANTONIO PICC line double lumen, good blood return. Dressing C/D/I dressing change due 12/04/18. L. foot dressing and sacral wound dressings C/D/I due 12/03/18. Elkins catheter draining to gravity with yellow, with some sediments noted. Call light within reach. Bed low, locked, side rails up. To endorse to AM nurse.
[2018-12-03] MEDS: INSULIN REGULAR, HUMAN 100 UNITS/ML, 10 ML VIAL (humuLIN R) SUBCUT PRN ×2 (06:32→13:06)
[2018-12-03 06:59] LABS: ANION GAP 6 (5-15); CALCIUM 8.7 mg/dL (8.4-11.0); CHLORIDE 104 mmol/L (98-107); CREATININE 2.03 mg/dL (0.55-1.30); GLUCOSE 201 mg/dL (70-99); POTASSIUM 4.5 mmol/L (3.5-5.1); SODIUM SERUM 138 mmol/L (136-145); UREA NITROGEN, BLOOD 42 mg/dL (8-21)
[2018-12-03 08:05] VITALS: BP_SYST 132
--- NOTE | 2018-12-03 09:00 | NUR ---
PHARMACEUTICAL SALES SPECIALIST: PT UNABLE TO TAKE MEDS AT THIS TIME, REFUSES TO OPEN MOUTH, IS NON COMPLAINT WITH MED ADMINISTRATION AT THIS TIME, WILL CONT' WITH POC.
[2018-12-03] MEDS: MINERAL OIL 30 ML UDC PO SCH (09:21)
[2018-12-03] MEDS: PANTOPRAZOLE SODIUM 40 MG/VIAL (PROTONIX) IVP SCH (09:21)
[2018-12-03] MEDS: MEMANTINE HCL 5 MG TABLET PO SCH (09:22)
[2018-12-03] MEDS: CYANOCOBALAMIN 1000 mCg TABLET PO SCH (09:22)
[2018-12-03] MEDS: ASPIRIN 81 MG TAB.CHEW PO SCH (09:22)
[2018-12-03] MEDS: NEPHROVITE, (FOLIC ACID/VITAMIN B COMP W-C 1 TAB) PO SCH (09:23)
[2018-12-03] MEDS: BALSAM PERU/CASTOR OIL 60 GM OINT...G. TP SCH (09:23)
[2018-12-03] MEDS: ACETAMINOPHEN/CODEINE 300 MG-30 MG TABLET PO SCH ×4 (09:23→21:37)
[2018-12-03] MEDS: CILOSTAZOL 50 MG TABLET (PLETAL) PO SCH (09:23)
[2018-12-03] MEDS: POLYETHYLENE GLYCOL 3350, 17 GM/ POWD.PACK PO SCH (09:23)
[2018-12-03] MEDS: ENOXAPARIN SODIUM 30 MG/0.3 ML SYRINGE SUBCUT SCH (09:35)
[2018-12-03] MEDS ORDERED: LEVOFLOXACIN 500 MG/D5W 100 ML IV ONE (11:00)
[2018-12-03 11:40] VITALS: BP_SYST 142
[2018-12-03] MEDS ORDERED: DEXTROSE 50%-WATER 50 ML DISP.SYRIN IVP PRN (12:00)
[2018-12-03] MEDS ORDERED: D5W 1,000 ML IV PRN (12:00)
[2018-12-03] MEDS ORDERED: GLUCOSE 15 GM GEL (in 37.5 GM TUBE) PO PRN (12:00)
--- NOTE | 2018-12-03 12:00 | NUR ---
GLUCOSE MONITORING: BLOOD SUGAR VDJSH=[id number], 2 UNITS REG INSULIN GIVEN SQ, TOLERATED WELL, WILL CONT' TO MONITOR AND ASSESS.
--- NOTE | 2018-12-03 14:09 | NUR ---
Nutrition F/U RD reviewed pt's current EMR including diet Hx, physician notes, nursing notes, pertinent labs/meds/procedures, care trends, and care activity. Current Diet Order: NPO x2 days Subjective information: Pt seen resting in bed, and unable to verbalize needs. Bedscale wt taken: 183.7#. Per EMR, KUB 12/01/18 revealed stool-filled large bowel -- pt was prescribed mineral oil and miralax. Per RN, pt will not take anything PO. Pt failed swallow eval 12/02/18 -- ST rec for NPO -- may need to consider long-term feeding options: GT versus hospice. Glucerna ONS was seen at bedside -- RD threw it away as pt should not be receiving any PO diet items. RN stated there are no definitive plans for PEG placement. Per bed huddles this morning, one daughter may have agreed for PEG placement. Current PO intake: Negligible x14 days Estimated Energy Expenditure (kcals/day) 1380-9103 kcal/day (30-35 kcal/kg Adj IBW wound healing) NEW Estimated Protein Required (g/day) 45-83 gm/day (0.8-1.5 gm/kg Adj IBW for RF/ wound healing) Estimated Fluid Required (l/day) Defer to MD r/t RF Problem/Etiology/Signs/Symptoms Suboptimal PO intakes related to possible lack of appetite associated w/ cognitive limitations as evidenced by Hx of Alzheimer's, negligible PO intake records and RN report of pt's refusals of meals. (*ongoing) Expected Outcomes/Goals - Monitor provision of EN support w/ goal of pt meeting at least 75% of estimated nutritional needs, labs trending WNL, normal GI function, and skin integrity/wt maintenance. Dietitian Recommendations * Recommend GI consult and PEG placement of alternative nutrition support * Consider Glucerna 1.2 at 60 ml/hr, Rj BID for EN formula Follow Up High Risk: F/U in 2-3 days
[2018-12-03 15:37] VITALS: BP_SYST 95
--- NOTE | 2018-12-03 17:00 | NUR ---
GLUCOSE MONITORING: BLOOD SUGAR LEVEL=89, NO COVERAGE REQUIRED, WILL CONT' TO MONITOR AND ASSESS.
[2018-12-03] MEDS: D5NS 1,000 ML IV SCH (17:13)
--- NOTE | 2018-12-03 19:46 | NUR ---
Opening notes Pt awake, opens eyes, non verbal but moans. VSS, afebrile. IVF infusing at ordered rate JOSÉ ANTONIO PICC line double lumen good blood return. Pt repositioned with pillow support. Dressing to sacral and L. food dry and intact. Safety measures in place. To motnior.
[2018-12-03 20:27] VITALS: BP_SYST 135
--- NOTE | 2018-12-03 20:36 | NUR ---
Spoke with MD Pt's daughters asking re plan of care. Per daughter Krystal they were told by MD Barium study was to be done. Paged and spoke with Dr. Light (quality control clerk for Dr. Jiménez). Informed MD re order for swallow eval in AM. Dr. Light states he's not really informed of the pt.
[2018-12-03] MEDS: MIRTAZAPINE 15 MG TABLET PO SCH (21:37)
--- NOTE | 2018-12-03 22:26 | NUR ---
Blood sugar Pt awake, Blood sugar checked 130, no indication for insulin per protocol. HOB elevated meds passed as scheduled with family assist syed villar/ [place]. To monitor. Addendum: 12/03/18 at 2229 by Sandrita Singer RN Occured at 2148.
--- NOTE | 2018-12-03 22:40 | NUR ---
Bowel movement Pt had a large BM, family assisted with pericare at bedside.
--- NOTE | 2018-12-04 01:02 | NUR ---
Rounds Pt asleep no s/s distress noted. IVF infusing at ordered rate JOSÉ ANTONIO PICC line. Elkins catheter draining to gravity. Safety measures maintained. Repositioned. To monitor.
[2018-12-04 01:24] VITALS: BP_SYST 116
[2018-12-04] MEDS: BALSAM PERU/CASTOR OIL 60 GM OINT...G. TP SCH (03:05)
--- NOTE | 2018-12-04 03:05 | NUR ---
WOUND CARE PT AWAKE. PHOTOS TAKEN OF L. FOOT WOUNDS AND L. BUTTOCK WOUND. DRESSING CHANGED, CLEANSED L. LATERAL AND MEDIAL FOOT WOUNDS WITH NS, PATTED DRY, APPLIED VENELEX OINTMENT ON WOUND BED AND MOISTURE BARRIER CREAM TO ZIA WOUNDS. COVERED WITH FOAM DRESSINGS. PERICARE PROVIDED AFTER BOWEL MOVEMENT. LEFT BUTTOCKS CLEANSED WITH NS, PATTED DRY, APPLIED VENELEX OINTMENT ON WOUND BED AND MOISTURE BARRIER CREAM TO ZIA WOUNDS. COVERED WITH FOAM DRESSING. (SEE ASSESSMENT FOR MEASUREMENT). PT TOLERATED WELL. PT REPOSITIONED. NEIL HEELS FLOATED ON PILLOWS, PT ON AIR LOSS MATTRESS.
--- NOTE | 2018-12-04 05:19 | NUR ---
SWALLOW EVAL: I CALLED [facility] THIS MORNING LEFT A MESSAGE IN HER ANSWERING MACHINE REGARDING SWALLOW EVALUATION.
[2018-12-04] MEDS: INSULIN REGULAR, HUMAN 100 UNITS/ML, 10 ML VIAL (humuLIN R) SUBCUT PRN (06:33)
--- NOTE | 2018-12-04 06:40 | NUR ---
PICC line care JOSÉ ANTONIO PICC line double lumen dressing changed per protocol. Good blood return. All ports called with alcohol caps. Pt tolerated well.
--- NOTE | 2018-12-04 06:45 | NUR ---
Closing notes Pt asleep, easily arousable. Blood sugar checked 152, 2 units Reg insulin given per ss protocol. IVF infusing at ordered rate R.UA PICC line. Elkins catheter draining to gravity with clear, yellow urine. Pt repositioned. Crow legs floated on pillows. Call light within reach. Safety maintained. To endorse to AM nurse.
[2018-12-04 06:52] LABS: BASOPHILS # (AUTO) 0.1 K/uL (0.0-0.2); BASOPHILS % (AUTO) 0.6 % (0.0-2.0); EOSINOPHILS # (AUTO) 0.7 K/uL (0.0-0.4); EOSINOPHILS % (AUTO) 7.3 % (0.0-4.0); HEMATOCRIT 23.6 % (36-48); HEMOGLOBIN 7.9 g/dL (12.0-16.0); LYMPHOCYTES # (AUTO) 2.8 K/uL (1.0-5.5); LYMPHOCYTES % (AUTO) 27.7 % (20.5-51.5); MEAN CORPUSCULAR HEMOGLOBIN 31 pg (27-31); MEAN CORPUSCULAR HGB CONC 34 % (32-36); MEAN CORPUSCULAR VOLUME 91 fL (79.0-98.0); MONOCYTES # (AUTO) 0.9 K/uL (0.0-1.0); MONOCYTES % (AUTO) 8.6 % (1.7-9.3); NEUTROPHILS # (AUTO) 5.7 K/uL (1.8-7.7); NEUTROPHILS % (AUTO) 55.8 % (40.0-70.0); PLATELET COUNT (AUTO) 223 K/uL (130-430); RED BLOOD CELL COUNT(AUTO) 2.58 MIL/uL (4.2-6.2); RED CELL DISTRIBUTION WIDTH 14.3 % (9.0-15.0); WHITE BLOOD COUNT (AUTO) 10.2 K/uL (4.8-10.8)
[2018-12-04 07:29] LABS: ALANINE AMINOTRANSFERASE 25 U/L (12-78); ALBUMIN 1.7 g/dL (3.4-4.8); ANION GAP 4 (5-15); ASPARTATE AMINOTRANSFERASE 16 U/L (10-37); CALCIUM 7.6 mg/dL (8.4-11.0); CHLORIDE 110 mmol/L (98-107); CREATININE 1.81 mg/dL (0.55-1.30); POTASSIUM 3.8 mmol/L (3.5-5.1); SODIUM SERUM 140 mmol/L (136-145); TOTAL BILIRUBIN 0.2 mg/dL (0.0-1.0); UREA NITROGEN, BLOOD 32 mg/dL (8-21)
[2018-12-04 07:33] LABS: GLUCOSE 409 mg/dL (70-99)
--- NOTE | 2018-12-04 07:35 | NUR ---
CRITICAL PAGED FOR CRITICAL LAB: GLUCOSE 409. AWAITING FOR CALL BACK
--- NOTE | 2018-12-04 07:45 | NUR ---
OPENING NOTE RECEIVED PATIENT RESTING IN BED. NO S/SX PAIN. NO ACUTE DISTRESS. NO SOB. RESPIRATION EVEN AND UNLABORED. SKIN WARM AND DRY TO TOUCH. PICC LINE TO JOSÉ ANTONIO INTACT AND PATENT; MAURY IVF. LEO CATH INTACT AND PATENT DRAINING CLEAR YELLOW URINE. BED IN LOW AND LOCKED POSITION. SIDERAIL UPX3. BED ALARM ON . ALL NEEDS MET. CALL LIGHT IN REACH. CONT TO MONITOR WITH FREQUENT VISUAL CHECKS
[2018-12-04 07:50] VITALS: BP_SYST 104
--- NOTE | 2018-12-04 08:20 | NUR ---
PAGED PAGED FOR CRITICAL LAB: GLUCOSE 409. AWAITING FOR CALL BACK
[2018-12-04] MEDS: NEPHROVITE, (FOLIC ACID/VITAMIN B COMP W-C 1 TAB) PO SCH ×2 (08:40→09:00)
[2018-12-04] MEDS: ASPIRIN 81 MG TAB.CHEW PO SCH ×2 (08:40→09:00)
[2018-12-04] MEDS: CYANOCOBALAMIN 1000 mCg TABLET PO SCH ×2 (08:40→09:00)
[2018-12-04] MEDS: MEMANTINE HCL 5 MG TABLET PO SCH ×2 (08:41→09:00)
[2018-12-04] MEDS: POLYETHYLENE GLYCOL 3350, 17 GM/ POWD.PACK PO SCH ×2 (08:42→09:00)
[2018-12-04] MEDS: MINERAL OIL 30 ML UDC PO SCH ×2 (08:42→09:00)
[2018-12-04] MEDS: PANTOPRAZOLE SODIUM 40 MG/VIAL (PROTONIX) IVP SCH (08:43)
[2018-12-04] MEDS: ENOXAPARIN SODIUM 30 MG/0.3 ML SYRINGE SUBCUT SCH (08:44)
--- NOTE | 2018-12-04 09:00 | NUR ---
SEEN AND EXAMINED BY AT BEDSIDE
[2018-12-04] MEDS: D5NS 1,000 ML IV SCH (09:01)
--- NOTE | 2018-12-04 09:10 | NUR ---
REPORTED TO PATIENTS BLOOD GLUCOSE WAS 409 THIS MORNING. BLOOD SUGAR TAKEN AT BEDSIDE WAS 132. MD WILL COME TO SEE PATIENT
--- NOTE | 2018-12-04 09:15 | NUR ---
MEDS PATIENT REFUSED ALL PO MEDICATION. OFFERED X3. TEACHING DONE ON MEDICATION AND ASE. PATIENT CONT TO REFUSE MEDICATION.
--- NOTE | 2018-12-04 10:54 | NUR ---
SEEN AND EXAMINED BY DR.JANDIAL PICKERING CALLED AND SPOKE TO BRENNAN ROTHMAN [phone], DAUGHTER, AND DISCUSSED PLAN OF CARE. PER MD, FAMILY STATED THAT PATIENT DOES EAT WHEN FAMILY COMES IN TO FEED HER AT NIGHT. MD WILL DISCHARGE PATIENT BACK TO SNF.
[2018-12-04] MEDS ORDERED: LEVOFLOXACIN 250 MG/D5W 50 ML IV SCH (11:00)
[2018-12-04 12:34] VITALS: BP_SYST 142
--- NOTE | 2018-12-04 12:38 | NUR ---
BLOOD GLUCOSE 97 mg/dL WITH NO INSULIN COVERAGE NEEDED. NO S/SX HYPO/HYPERGLYCEMIA NOTED. TEACHING DONE ON DM. CONT TO MONITOR
--- NOTE | 2018-12-04 14:10 | NUR ---
NOTE PATIENT RESTING IN BED. NO ACUTE DISTRESS. NO SOB. RESPIRATION EVEN AND UNLABORED. SKIN WARM AND DRY TO TOUCH. REPOSITIONED FOR COMFORT. ALL NEEDS ANTICIPATED AND MET. CONT TO MONITOR. CALL LIGHT IN REACH.
--- NOTE | 2018-12-04 15:00 | NUR ---
WOUND CARE WOUND CARE PROVIDED ORDERED, MAURY WELL. ALL NEEDS MET. CONT TO MONITOR
--- NOTE | 2018-12-04 15:55 | NUR ---
S.T. SWALLOW EVAL SWALLOW RE-EVAL COMPLETED. PT PRESENTS W/ SEV OROPHARYNGEAL DYSPHAGIA W/ ORAL DEFENSIVENESS (VERY SLIGHTLY LESS THAN PREVIOUS EVALS), POOR MANDIBULAR EXTENSION FOR BOLUS SAFETY MANAGER, IMPAIRED BOLUS MANIPULATION, AND DELAYED OR ABSENT SWALLOW. PT CONTINUES TO BE AT VERY HIGH RISK FOR ASPIRATION, MALNUTRITION,AND DEHYDRATION. REC: RECOMMENDATION STAYS THE SAME FOR [facility] OR HOSPICE. NURSE GILBERTO NOTIFIED. PER GILBERTO: FAMILY DECLINES [facility] AND PT IS PENDING D/C. [id number] CM G8997 CM G8998 CM NOMS LEVEL 2
--- NOTE | 2018-12-04 16:11 | NUR ---
Discharge Planning: DCP faxed pt referral to [facility] ([phone] p [phone]) DCP to follow up. Addendum: 12/04/18 at 1642 by Mildred CHRISTIAN [facility] ([phone] p [phone]) Rm 208B, [facility] ([phone]) Will Call patient packet taken to nurse station.
[2018-12-04 16:12] VITALS: BP_SYST 134
--- NOTE | 2018-12-04 16:21 | NUR ---
WOUND RE-EVALUATION: Patient received in a [place] Bed with an Isoflex SPENCER mattress with low air-loss therapy, awake, alert, confused, non-verbal. Patient is able to turn in bed with minimal assist. Jonn Score is an 11. Microbiology: Blood culture results 2 negative. MRSA screen results negative. Left fifth toe wound culture results positive for Providencia stuartii (CNSO). Intrinsic factors that delay wound healing: Chronic Kidney Disease, Hypoalbuminemia. Extrinsic factors that delay wound healing: Decreased mobility. Wound Assessment: 1. 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 Wound care performed by film processing shift supervisor nurse this morning. Dressing not removed for assessment secondary to doing so would decrease wound temperature and retard wound healing rate. 2. Left medial foot at first metatarsal head: Ischemic wound, present on admission. Wound care performed by film processing shift supervisor nurse this morning. Dressing not removed for assessment secondary to doing so would decrease wound temperature and retard wound healing rate. Recommend continue: Cleanse wounds with normal saline. Apply moisture barrier cream to ignacia-wounds. Apply Venelex ointment to wound beds. Cover with foam dressings. Perform wound care daily, and as needed for dressing soiling or dislodgement. 3. Left Great Toe: Dark discoloration/dry gangrene, with dark discoloration under inferior nail bed, present on admission. No odor, no drainage. 4. Left Second toe, dorsal aspect: Dark discoloration/dry gangrene, present on admission. No odor, no drainage. Recommend continue: No dressings needed. Newald sites with Betadine q shift. 5. Left Buttock: Stage II Pressure ulcer over re-opened scar tissue, present on admission. Wound bed has 50% white/light yellow tissue, 30% red tissue, 20% pink tissue. No odor, scant sanguineous drainage. Original periwound site has hypertrophic tissue, otherwise periwound intact. Surrounding tissue has scar tissue. It appears that the wound expanded superiorly through the scar tissue present on admission, and the new open area appears to be from macerated skin peeling off. Wound measures 5.5 cm x 1.4 cm. Recommend: Cleanse wound with normal saline. Apply Calmoseptine cream to wound and ignacia-wound. Apply Venelex ointment to wound bed. Cover with foam dressing. Perform wound care daily, and as needed for dressing soiling or dislodgement. 6. Gluteal Sulcus: Intertrigo. Site has linear area of 100% red tissue. No odor, no drainage. Scar tissue present on surrounding tissue. Light coating of moisture barrier cream covered site completely and easily. Site measures 2.5 cm x 1.5 cm. Recommend: Cleanse wound with normal saline. Apply Calmoseptine cream to wound and ignacia-wound. Apply Venelex ointment to any portion of wound bed not covered by cream. Cover with foam dressing. Perform wound care daily, and as needed for dressing soiling or dislodgement. Also recommend continue: Encourage and assist patient as needed with repositioning side to side only every hour with pillow support and off-load pressure areas with pillows for pressure re-distribution. Place one pillow deep underneath trunk and one pillow deep underneath pelvis bilaterally to offload Sacral and Buttocks areas. Offload, elevate and float bilateral heels with pillows. Perform skin care and monitor skin integrity Q shift. Use moisture barrier cream on buttocks and other moisture susceptible areas QID and as needed for soiling. Maintain patient on a low air-loss mattress. Addendum: 12/04/18 at 1704 by Cj Walton RN Addendum: Site 5 should say: Stage II Pressure ulcer over re-opened scar tissue, present on admission, that progressed to a Stage III.
--- NOTE | 2018-12-04 17:15 | NUR ---
Wound Care Update: Wound progressed from Stage 2 to a Stage 3. Notified via phone: Dr. Yaquelin Pyle, patient's daughter
--- NOTE | 2018-12-04 18:00 | NUR ---
BLOOD GLUCOSE IS 106 mg/dL WITH NO INSULIN COVERAGE. ALL NEEDS MET. CONT TO MONITOR
--- NOTE | 2018-12-04 19:00 | NUR ---
CLOSING NOTE PATIENT STABLE. NO ACUTE DISTRESS. NO SOB. RESPIRATION EVEN AND UNLABORED. SKIN WARM AND DRY TO TOUCH. MIDLINE TO JOSÉ ANTONIO INTACT AND PATENT. LEO CATH INTACT AND PATENT DRAINING YELLOW CLEAR URINE. BED IN LOW AND LOCKED POSITION. SIDERAIL UPX3. ALL NEEDS ANTICIPATED AND MET BY STAFF. CALL LIGHT IN REACH. CONT TO MONITOR. ENDORSE CARE TO YESENIA GUZMAN.
--- NOTE | 2018-12-04 19:20 | NUR ---
PHONED MAGDALENA ROMAN SPOKE WITH TOBIAS GUZMAN SBAR REPORT GIVEN VIA TELEPHONE REGARDING TRANSFER TO ROOM 208 [address] .
--- NOTE | 2018-12-04 19:45 | NUR ---
PHONED BRENNAN ROTHMAN [phone] FAMILY UPDATE GIVEN REGARDING TRANSFER TIME .
--- NOTE | 2018-12-04 20:00 | NUR ---
[facility] - ONE HERE FOR PICK - UP AMBULANCE , PATIENT NO ACUTE DISTRESS RESPIRATIONS REGULAR ALSO UNLABORED SKIN DRY WARM , ORDERS CARRIED OUT .
== END 2018-12-04 20:45 | DRG 853 ==
LOC: SED 17:37 → SMU 21:16 → EDBD 21:16 → SMU 21:37 → STU 11-22 15:26 → SMU 11-23 17:56
PROVIDERS: ADMIT Internal Medicine Hospice and Palliative Medicine; ATTEND Internal Medicine Hospice and Palliative Medicine
PROC: 0JBR0ZZ Excision of Left Foot Subcutaneous Tissue and Fascia, Open Approach (ICD-10-PCS; principal; 2018-11-21)
PROC: 02HV33Z Insertion of Infusion Device into Superior Vena Cava, Percutaneous Approach (ICD-10-PCS; 2018-11-27)
PROC: B548ZZA Ultrasonography of Superior Vena Cava, Guidance (ICD-10-PCS; 2018-11-27)
DX: A41.9 Sepsis, unspecified organism (principal); N18.6 End stage renal disease; N17.0 Acute kidney failure with tubular necrosis; E43 Unspecified severe protein-calorie malnutrition; T81.41XA Infection following a procedure, superficial incisional surgical site, initial encounter; I12.0 Hypertensive chronic kidney disease with stage 5 chronic kidney disease or end stage renal disease; L03.115 Cellulitis of right lower limb; B37.49 Other urogenital candidiasis; E11.52 Type 2 diabetes mellitus with diabetic peripheral angiopathy with gangrene; M86.8X7 Other osteomyelitis, ankle and foot; L03.116 Cellulitis of left lower limb; E87.0 Hyperosmolality and hypernatremia; G30.9 Alzheimer's disease, unspecified; F02.80 Dementia in other diseases classified elsewhere, unspecified severity, without behavioral disturbance, psychotic disturbance, mood disturbance, and anxiety; E11.22 Type 2 diabetes mellitus with diabetic chronic kidney disease; J44.9 Chronic obstructive pulmonary disease, unspecified; Y83.5 Amputation of limb(s) as the cause of abnormal reaction of the patient, or of later complication, without mention of misadventure at the time of the procedure; D63.8 Anemia in other chronic diseases classified elsewhere; E11.621 Type 2 diabetes mellitus with foot ulcer; L97.529 Non-pressure chronic ulcer of other part of left foot with unspecified severity; E11.69 Type 2 diabetes mellitus with other specified complication; B96.89 Other specified bacterial agents as the cause of diseases classified elsewhere; K56.41 Fecal impaction; Z99.2 Dependence on renal dialysis; Z89.422 Acquired absence of other left toe(s); Z79.899 Other long term (current) drug therapy; Z79.82 Long term (current) use of aspirin; Y92.89 Other specified places as the place of occurrence of the external cause; Z86.73 Personal history of transient ischemic attack (TIA), and cerebral infarction without residual deficits; Z68.33 Body mass index [BMI] 33.0-33.9, adult
CPT/HCPCS: 36415; 70450-TC; 71045; 74018; 76770; 80048; 80053; 80202-TC; 81000-TC; 82962; 83540-TC; 83550-TC; 83605; 84439; 84443-TC; 84484; 85025; 85610-TC; 85730-TC; 87040-TC; 87070-TC; 87081; 87086; 87186-TC; 92610-GN; 93005; 93880; 93923; 96365; 96375; 96376; 99285; C1751; C9113; G0378; J0692; J0696; J1450; J1650; J1815; J1956; J2001; J2270; J2405; J2543; J3370; J3490; J7042; J7050; J7060